=== PATIENT | male | born 1945 | race Caucasian/White ===

== ENCOUNTER → 2018-04-15 | Outpatient (CLI) | payer OTHER ==
[~2018-04-15] MED LIST: AMLODIPINE BESYL5 M1 PO; ASPIRIN325 PO; BLOOD PRESSURE MED; CELEXA 20 MG TA20 M1 PO; CIPRO250 M1 PO; COLACE100 MG PO; FLUCONAZOLE 10100 MG PO; GLUCOPHAGE1000 MG PO; GLUCOPHAGE500 MG PO; GLYBURIDE 5 MG T5 MG PO; HUMALOG100 UNIT/1 SUBQ; LANTUS SUBLING; LANTUS SUBQ; LEVAQUIN 500 M500 M2 PO; LIPITOR 40 MG T40 M1 PO; LISINOPRIL-HCT1 EAC1 PO; LISINOPRIL40 MG PO; LOPERAMIDE 2 MG2 M1 PO; LOVENOX SQ; MAXIPIME 1 GM/D51 G1 IV; MOBIC15 MG PO; NORVASC10 MG PO; OMEPRAZOLE 20 M20 M1 PO; OXYBUTYNIN 5 MG5 M2 PO; PROZAC20 MG PO; SLO-NIACIN750 MG PO; TOUJEO MAX300 UNIT/1 SUBQ; TYLENOL325 MG PO; ZESTRIL20 MG PO; ZYVOX600 MG PO
[2018-04-15 14:46] LABS: CALCIUM 9.1 mg/dL (8.5-10.1); CREATININE 1.3 mg/dL (0.6-1.3); POTASSIUM 4.5 mmol/L (3.5-5.1)
[2018-04-15 14:47] LABS: ABSOLUTE BASOPHILS 0.1 thou/uL (0.0-0.2); ABSOLUTE EOSINOPHILS 0.2 thou/uL (0.0-0.7); ABSOLUTE LYMPHOCYTES 2.3 thou/uL (0.8-5.3); ABSOLUTE MONOCYTES 0.9 thou/uL (0.0-1.2); ABSOLUTE NEUTROPHILS 8.1 thou/uL (1.6-8.1); BASOPHILS 0.6 %; EOSINOPHILS 1.4 %; HEMATOCRIT 42.7 % (42.0-52.0); HEMOGLOBIN 14.3 gm/dL (14.0-18.0); MCH 29.7 pg (26.0-34.0); MCHC 33.4 g/dL (28.0-37.0); MONOCYTES 7.8 %; MPV 7.4 fl. (7.2-11.1); NUCLEATED RBCS 0 /100WBC; PLATELET COUNT* 338 thou/uL (150-400); POLYS 70.2 %; RBC 4.79 mil/uL (4.50-6.00); RDW-CV 13.5 % (10.5-14.5); WBC 11.6 thou/uL (4.0-11.0)
--- NOTE | 2018-04-16 13:50 | EKG ---
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 : 1945 Requested By: Damion Pan Order Number: [id number] Reading MD: Gus Patricia Measurements Intervals [place] Rate: 72 P: 64 [place]: 155 QRS: 37 QRSD: 79 T: 116 QT: 391 QTc: 428 Interpretive Statements Sinus rhythm Abnormal T, consider ischemia, lateral leads Baseline wander in lead(s) V1 Compared to ECG 02/06/2013 11:13:38 no change Electronically Signed On 04-16-2018 13:49:54 CDT by Gus Patricia [email or web address] <ELECTRONICALLY SIGNED> By: Gus Patricia MD, [facility] 04/16/18 1349 1450 1450 Gus Patricia MD, FAC /EPI
== END ==
LOC: M.LAB 13:19
PROVIDERS: Urology
DX: Z01.818 Encounter for other preprocedural examination (principal); N40.1 Benign prostatic hyperplasia with lower urinary tract symptoms; N13.8 Other obstructive and reflux uropathy; R91.1 Solitary pulmonary nodule

== ENCOUNTER 2018-04-30 07:44 | Observation (INO) | payer OTHER ==
[~2018-04-30] VITALS: Ht 167.6 cm; Wt 81.6 kg
--- NOTE | ~2018-04-30 | H ---
[address] [address] HISTORY AND PHYSICAL Name: SHADIA MILES Room: [address] Herminio Mercedes#: [id number] Admission: 04/30/18 Attend Phys: Damion Pan MD Discharge: 05/01/18 Date of : 45 Report #: [id number] THIS REPORT FOR: //name// For History and Physical please refer to the handwritten note in the patient's medical record. By: 09Medical Records Staff KENNA /DANNA
[~2018-04-30 07:44] MED LIST changes: -AMLODIPINE BESYL5 M1 PO; -CIPRO250 M1 PO; -COLACE100 MG PO; -FLUCONAZOLE 10100 MG PO; -HUMALOG100 UNIT/1 SUBQ; -LANTUS SUBLING; -LANTUS SUBQ; -LEVAQUIN 500 M500 M2 PO; -MAXIPIME 1 GM/D51 G1 IV; -TYLENOL325 MG PO; -ZYVOX600 MG PO
[2018-04-30 08:54] VITALS: BP 157/83
[2018-04-30 12:30] VITALS: BP 187/83
[2018-04-30 13:00] VITALS: BP 187/83
[2018-04-30 15:31] VITALS: BP 187/83
[2018-04-30 15:44] VITALS: BP 170/79
[2018-04-30 21:30] VITALS: BP 158/85
[2018-05-01 00:25] VITALS: BP 162/76
[2018-05-01 04:07] LABS: ABSOLUTE BASOPHILS 0.1 thou/uL (0.0-0.2); ABSOLUTE EOSINOPHILS 0.2 thou/uL (0.0-0.7); ABSOLUTE LYMPHOCYTES 2.6 thou/uL (0.8-5.3); ABSOLUTE NEUTROPHILS 8.5 thou/uL (1.6-8.1); BASOPHILS 0.6 %; EOSINOPHILS 1.2 %; HEMATOCRIT 39.1 % (42.0-52.0); HEMOGLOBIN 13.1 gm/dL (14.0-18.0); LYMPHOCYTES 21.3 %; MCH 29.5 pg (26.0-34.0); MCHC 33.6 g/dL (28.0-37.0); MONOCYTES 7.9 %; MPV 7.5 fl. (7.2-11.1); NUCLEATED RBCS 0 /100WBC; PLATELET COUNT* 304 thou/uL (150-400); RBC 4.44 mil/uL (4.50-6.00); RDW-CV 13.1 % (10.5-14.5); WBC 12.4 thou/uL (4.0-11.0)
[2018-05-01 04:20] LABS: CALCIUM 8.6 mg/dL (8.5-10.1); CREATININE 1.1 mg/dL (0.6-1.3)
[2018-05-01 04:41] VITALS: BP 175/73
[2018-05-01 07:51] VITALS: BP 148/82
[2018-05-01 08:30] VITALS: BP 148/82
[2018-05-01] MEDS ORDERED: CIPRO250 M1 PO (13:39)
[2018-05-01 13:46] VITALS: BP 187/83
[2018-05-01 14:55] VITALS: BP 187/83
--- NOTE | 2018-05-21 10:09 | PATH ---
[address] [address] PATHOLOGY RPT PROCEDURE Name: SHADIA AVENDAÑO Room: [address] Herminio Mercedes#: [id number] Admission: 04/30/18 Date of : 45 Discharge: 05/01/18 Report #: [id number] Path Case #: [id number] [facility] Accession Number: [id number] . 01 Material submitted: . PROSTATE CHIPS . 01 Clinical history: . BPH with obstruction and lower urinary tract symptoms . 02 Diagnosis: Prostate chips: - Benign prostatic tissue with prominent stromal hyperplasia and mild chronic inflammation and mild chronic urethritis. (OSBALDO:adrienne; 05/04/2018) QMS/05/04/2018 . 02 Electronically signed: . Khari Saldana MD, Pathologist NPI- [id number] . 01 Gross description: . Received in formalin labeled "Shadia Avendaño, prostate chips," is a 6 g aggregate of connors soft tissue fragments measuring 6.5 x 4.4 x 0.4 cm in aggregate dimensions. The specimen is submitted entirely in cassettes A1 through A6. ([facility]; 05/03/2018) XDC/XDC . 02 Pathologist provided ICD-10: N40.0, N41.1 . 02 CPT . 210245 Performed at: [address], [place] [id number] MD Ozzy Lopez MD Phone: [phone] Performed at: [address] [facility] [address] [address], [place], [place] [id number] MD Khari Saldana MD Phone: [phone]
--- NOTE | 2018-06-13 15:12 | OP ---
[facility] [address] [place] [address] OPERATIVE REPORT Name: JDSHADIA Bon Room: [address] Herminio Mercedes#: [id number] Admission: 04/30/18 Attend Phys: Damion Pan MD Discharge: 05/01/18 Date of : 45 Report #: [id number] THIS REPORT FOR: //name// CC: Obdulio Pan DATE OF SERVICE: 04/30/2018 PREOPERATIVE DIAGNOSES: Benign prostatic hyperplasia with bladder outlet obstruction. POSTOPERATIVE DIAGNOSES: Benign prostatic hyperplasia with bladder outlet obstruction. PROCEDURES PERFORMED: Cystoscopy with transurethral resection of prostate. SURGEON: Damion Pan M.D. ANESTHESIA: General endotracheal. BRIEF HISTORY: The patient is a 72-year-old male who presented to the office with lower urinary tract symptoms suggestive of BPH with bladder outlet obstruction. The patient also reported nocturnal enuresis. He was treated with dual medical therapy as well as trials of anticholinergics and desmopressin without improvement. Cystoscopy in the office revealed trilobar prostatic hyperplasia with visual obstruction of his bladder outlet. After discussion of available management options, the patient elected transurethral resection of his prostate. The risks of the procedure including the risks of bleeding, infection, damage to surrounding structures, postoperative urinary incontinence, postoperative urinary retention, failure to relieve symptoms including nocturnal enuresis, need for additional procedures, and anesthetic risks were discussed with the patient and he wished to proceed. PROCEDURE IN DETAIL: The risks and benefits of surgery were discussed with the patient, and he wished to proceed. Informed consent was obtained, and the patient was transferred to the operating room where he was laid supine on the operating room table. After the induction of adequate general endotracheal anesthesia and the administration of appropriate preoperative antibiotics, the patient's legs were placed in a modified dorsal lithotomy position taking care to pad all pressure points and avoid any hyperextension or hyperflexion of his joints. The patient's genitalia were prepped and draped in the usual sterile fashion. A timeout was then performed to ensure correct patient and procedure. At this time, a 22-Djiboutian cystoscope sheath with a 30-degree cystoscope lens was lubricated and advanced under direct vision and irrigation into the anterior urethra. There were no anterior urethral abnormalities identified. As the prostatic urethra was approached, there was once [place] [address] OPERATIVE REPORT Name: SHADIA MILES Bon [address]: [address]#: [id number] Admission: 04/30/18 Attend Phys: Damion Pan MD Discharge: 05/01/18 Date of : 45 Report #: [id number] enlargement with coaptation in the midline and visual obstruction. The prostatic length was relatively short, and there was a significant median lobe enlargement, which also appeared obstructive. The cystoscope was advanced into the bladder where it was disarticulated, and the bladder was drained. Cystoscopy was then performed under direct vision and irrigation with both a 30 degree and 70 degree lens. The patient's ureteral orifices were initially difficult to identify, but eventually they were identified well up up onto the median lobe of the prostate close to midline. This left very little median lobe prostate tissue available for resection. Systematic panendoscopy revealed mild bladder wall trabeculations without additional gross bladder wall pathology. There were no papillary bladder tumors or suspicious mucosal lesions identified. At this time, the cystoscope was removed, and a 24-Djiboutian resectoscope sheath with obturator was lubricated and advanced into the bladder without difficulty. The obturator was removed and was replaced with the resectoscope. The patient's ureteral orifices were once again identified, as was the verumontanum to tabatha the distal extent of the resection. As previously noted, the ureteral orifices were found well up onto the median lobe of the prostate near the midline, which left a very small isthmus of tissue for resection of the median lobe. This was carefully resected checking frequently to be sure that the ureteral orifices were not involved in the resection. This midline portion of the median lobe was resected down until adequately channeled out. Attention was then paid to the patient's left and right lateral prostate lobes, which were resected in succession. Prostate chips generated during the procedure were periodically evacuated out through the resectoscope sheath. At the end, they were passed off the table for pathologic analysis. Care again was taken to avoid ureteral orifices given their proximity to the resection and at no time during the procedure was the resection taken distal to the verumontanum. After the prostate had been adequately resected and all prostate chips evacuated out through the resectoscope, hemostasis was obtained with the electrosurgical loop. Hemostasis was noted to be good at the conclusion of the procedure. The ureteral orifices though close to the resection, were left undisturbed. The resectoscope was then removed, and a 24-Djiboutian 3-way Baez catheter was lubricated and advanced into the bladder without difficulty. The catheter balloon was inflated with 30 mL of sterile water and continuous irrigation was established. The efflux was clear. B and O suppository was placed per rectum. The patient was returned to a supine position, awakened from anesthesia and transferred to the postoperative care unit in stable condition. The patient tolerated the procedure well. COMPLICATIONS: None. ESTIMATED BLOOD LOSS: Minimal. IV FLUIDS: Crystalloid. DRAINS: 24-Djiboutian 3-way Baez catheter [place] [address] OPERATIVE REPORT Name: MILESSHADIA Room: [address] Herminio Mercedes#: [id number] Admission: 04/30/18 Attend Phys: Damion Pan MD Discharge: 05/01/18 Date of : 45 Report #: [id number] SPECIMENS: Prostate chips. FINDINGS: 1. Normal anterior urethra. 2. Trilobar prostatic hyperplasia with visual obstruction. 3. Bilateral ureteral orifices located near the midline, well up onto the median lobe of the prostate. 4. Mild bladder wall trabeculations without additional gross bladder wall pathology. <ELECTRONICALLY SIGNED> By: Damion Pan MD 06/13/18 1512 1154 [id number] Pan MD /nt
== END 2018-05-01 14:55 | disposition home health service (06) ==
LOC: M.SUR 07:44 → M.ORTHSURG 13:37 → M.SUR 13:37 → M.ORTHSURG 14:00 → M.SUR 15:03 → M.ORTHSURG 05-01 14:55
PROVIDERS: ADMIT Urology
DX: N40.0 Benign prostatic hyperplasia without lower urinary tract symptoms (principal)

== ENCOUNTER 2018-05-05 12:37 | Inpatient (IN) | payer OTHER ==
[~2018-05-05] VITALS: Ht 172.7 cm; Wt 84.9 kg
[~2018-05-05 12:37] MED LIST changes: +CIPRO250 M1 PO
[2018-05-05 12:43] VITALS: BP 133/62
[2018-05-05 13:11] LABS: HEMATOCRIT 38.7 % (42.0-52.0); HEMOGLOBIN 12.9 gm/dL (14.0-18.0); MCH 29.2 pg (26.0-34.0); MCHC 33.2 g/dL (28.0-37.0); MCV 87.8 fL (80.0-100.0); MPV 7.3 fl. (7.2-11.1); NUCLEATED RBCS 0 /100WBC; PLATELET COUNT* 327 thou/uL (150-400); RBC 4.41 mil/uL (4.50-6.00); RDW-CV 13.2 % (10.5-14.5); WBC 23.7 thou/uL (4.0-11.0)
[2018-05-05 13:21] LABS: APTT 27.7 Seconds (25.0-31.3); INR 1.1; PROTIME 11.1 Seconds (9.20-11.50)
[2018-05-05 13:25] LABS: ANION GAP 9 mmol/L (7-16); BUN 33 mg/dL (7-18); CALCIUM 9.7 mg/dL (8.5-10.1); CHLORIDE 98 mmol/L (98-107); CO2 28 mmol/L (21-32); CREATININE 1.7 mg/dL (0.6-1.3); GLUCOSE 279 mg/dL (70-99); POTASSIUM 4.7 mmol/L (3.5-5.1); SODIUM 135 mmol/L (136-145)
[2018-05-05 13:30] LABS: ALBUMIN 3.1 g/dL (3.4-5.0); ALKALINE PHOSPHATASE 111 U/L (46-116); NT-PRO BRAIN NAT PEPTIDE 169 pg/mL (<300); SGOT 10 U/L (15-37); SGPT 14 U/L (30-65); TOTAL BILIRUBIN 0.6 mg/dL (<0.1-1.0); TOTAL PROTEIN 7.6 g/dL (6.4-8.2); TROPONIN-I LEVEL <0.06 ng/mL (<0.06)
[2018-05-05 13:37] LABS: ABSOLUTE BASOPHILS 0.2 thou/uL (0.0-0.2); ABSOLUTE EOSINOPHILS 0.2 thou/uL (0.0-0.7); ABSOLUTE LYMPHOCYTES 0.9 thou/uL (0.8-5.3); ABSOLUTE MONOCYTES 1.7 thou/uL (0.0-1.2); ABSOLUTE NEUTROPHILS 20.6 thou/uL (1.6-8.1)
[2018-05-05 13:38] LABS: PLATELET ESTIMATE ADEQUATE
[2018-05-05 14:00] LABS: URINE BILIRUBIN NEGATIVE (Negative); URINE BLOOD 3+ (Negative); URINE CLARITY CLOUDY; URINE COLOR BROWN; URINE GLUCOSE-RANDOM 1+ (Negative); URINE KETONES TRACE (Negative); URINE LEUKOCYTES-REFLEX 2+ (Negative); URINE NITRITE-REFLEX NEGATIVE (Negative); URINE PROTEIN 2+ (Negative); URINE SPECIFIC GRAVITY 1.025 (1.005-1.030); URINE UROBILINOGEN 0.2 E.U./dl (0.2-1.0)
[2018-05-05 14:06] LABS: SQUAMOUS NONE SEEN /LPF (0-3)
[2018-05-05 14:07] LABS: CASTS None Seen /LPF (None Seen); CRYSTALS None Seen /LPF (None Seen); URINE RBC >20 Many /HPF (0-2)
[2018-05-05 15:38] VITALS: BP 136/71
[2018-05-05 16:00] VITALS: BP 142/77
--- NOTE | 2018-05-05 17:03 | NUR ---
RECIEVED REPORT FROM MIA RN IN ER OF EXPECTED TRANSFER AT 1516- DX: SEPSIS WITH WEAKNESS- PT ARRIVED TO UNIT VIA CART WITH ASSISTANCE REQUIRED X3 VIA SLIDE TO BED- LENS GRINDER APPRENTICE PLACE ORDERED, TRCING ST- UPON ASSESSMENT PT NOTED TO BE INCONTINENT OF URINE- A&O X2 WITH NOTED CONFUSSION- LCTA, DIMINISHED IN BASES- VS 99.3 20 142/77 111 92% ON RA- ABDOMEN SOFT/ROUND/NON-TENDER, BS X4 QUADS- PT REPORTS PT TO HAVE HAD BM LAST 05/04/18- 3L IVF REPORTED TO HAVE BEEN COMPLETED IN ER PRIOR TO TRANSFER, ALONG WITH IV ABT- IVF STARTED PRESIBED AT 100ML/HR- POST VOID RESIDUAL PER [employer] COMPLETED AND NOTED WITH 233CC PVR- HERE TO ASSESS WITH ANGEL PLACED PER PHYSICAIN AND NOT TO BE REMOVED- BS PRESCIBED, BS NOTED TO BE 124 PRIOR TO DINNER THIS SHIFT- PT DENIES ANY C/O PAIN/DISCOMFORT AT THIS TIME- FALL PRECAUTIONS IN PLACE R/T FREQUENT FALLS- BED ALARM IN PLACE ADN WORKING R/T PATINET SAFETY- CALL LIGHT AND PERSONAL BELONGINGS WITH IN REACH- HOURLY ROUNDS IN PLACE R/T SAFETY/NEEDS- ALL NEEDS MET AT THIS TIME-WCTM
[2018-05-05 20:00] VITALS: BP 142/61
[2018-05-06] VITALS: BP 175/73
[2018-05-06 04:00] VITALS: BP 155/63
[2018-05-06 04:27] LABS: ABSOLUTE BASOPHILS 0.1 thou/uL (0.0-0.2); ABSOLUTE LYMPHOCYTES 1.5 thou/uL (0.8-5.3); ABSOLUTE NEUTROPHILS 17.3 thou/uL (1.6-8.1); BASOPHILS 0.3 %; EOSINOPHILS 0.1 %; HEMATOCRIT 35.9 % (42.0-52.0); LYMPHOCYTES 7.4 %; MCH 29.1 pg (26.0-34.0); MCHC 33.5 g/dL (28.0-37.0); MONOCYTES 9.7 %; MPV 7.9 fl. (7.2-11.1); NUCLEATED RBCS 0 /100WBC; PLATELET COUNT* 279 thou/uL (150-400); POLYS 82.5 %; RBC 4.12 mil/uL (4.50-6.00); RDW-CV 12.9 % (10.5-14.5)
[2018-05-06 04:42] LABS: CALCIUM 8.1 mg/dL (8.5-10.1); CREATININE 1.1 mg/dL (0.6-1.3); POTASSIUM 4.2 mmol/L (3.5-5.1)
--- NOTE | 2018-05-06 05:17 | NUR ---
ASSUMED CARE OF PT AFTER REPORT AT 1930. PT A&OX 3-4 AND FORGETFUL. PHSYCAL ASSESSMENT COMPLETED AND CHARTED. PT ON RA WITH 96% O2 SAT.PT TRACING ST ON TELE. PT FEBRILE WITH TEMP OF 102 F-ANTIPYRETIC MED GIVEN PER DEC. PT HAS ONE TIME EPISODE OF NAUSEA & VOMITING-TREATED WITH ZOFRAN. PT BP 175/73 AND HR 120'S-METOPROLOL GIVEN. PT Q2 TURN. HS REST AND SAFETY GOALS ACHIEVED. DENIES ANY PAIN OR DISCOMFORT. WILL CONTINUE TO MONITOR PT ON DURATION OF SHIFT.
[2018-05-06 07:54] VITALS: BP 149/80
--- NOTE | 2018-05-06 09:28 | NUR ---
ASSUMED CARE OF PT THIS AM AROUND 0715- PHYSICAL TRAINER IN PLACE ORDERED, TRACING ST THIS AM- UPON ASSESSMENT PT NOTED TO BE RESTING IN BED, WATCHING TV- PT A&O X2-3 WITH NOTED CONFUSSION- INCONTINENT OF BOWEL, ANGEL IN PLACE D/D DANIELLE COLORED URINE- Q [address]-DIMINISHED LUNG SOUNDS NOTED, RESP EVEN AND UN-LABORED- VSS, 02 SAT 95% ON RA-ABDOMEN SOFT/ROUND/NON-TENDER, BS X4 QUADS- PT REPORTS LAST BM 05/04/18- IV NOTED TO LEFT FA INTACT WITH IVF INFUSING PRESCRIBED- IV NOTED TO RIGHT AC INTACT AND SL- ID CONSULTED THIS AM FOR ABT- LATIC THIS AM WNL AT 1.2- GOOD PO INTAKE NOTED THIS AM WITH BREAKFAST- PT DENIES ANY C/O PAIN/DISCOMFORT THIS AM-CALL LIGHT AND PERSONAL BELONGINGS WITH IN REACH- BED ALARM IN PLACE AND WORKING FOR PT SAFETY- HOURLY ROUNDS IN PLACE R/T SAFETY/NEEDS- ALL NEEDS MET AT THIS TIME-WCTM
[2018-05-06 11:54] VITALS: BP 162/82
--- NOTE | 2018-05-06 12:59 | EKG ---
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 CARREON : 1945 Requested By: Vinnie Nguyen Order Number: [id number] MD: Franco Ch Measurements Intervals [place] Rate: 111 P: 48 [place]: 146 QRS: 33 QRSD: 80 T: 121 QT: 311 QTc: 423 Interpretive Statements Sinus tachycardia Probable left atrial enlargement Nonspecific T abnormalities, lateral leads Compared to ECG 04/15/2018 14:50:46 Sinus rate has increased Possible ischemia no longer present T-wave abnormality still present Electronically Signed On 05-06-2018 12:59:46 CDT by Franco Ch [email or web address] <ELECTRONICALLY SIGNED> By: Franco Ch MD, [facility] 05/06/18 1259 1254 1254 Franco Ch MD, [facility] /EPI
--- NOTE | 2018-05-06 16:19 | NUR ---
PT CURRENTLY RESTING IN BED, AT SIDE VISITING- LEAD FRONT DESK AGENT IN PLACE ORDERED, TRACING SR WITH PAC'S- IV TO LEFT FA INTACT WITH IVF INFUSING PRESCIBED- IV ABT GIVEN THIS SHIFT PRESCIBED- HERE TO ASSESS THIS SHIFT WITH 1X ORDER RECIEVED FOR GENTAMICYCIN, AND GIVEN PRESCIBED THIS SHIFT- WORKING WITH PT/OT PRESCIBED- SLOW ADVANCE NOTED TOWARDS GOALS, NEEDS EXT ASSISTANCE WITH ADL'S- MG NOTED AT 1.0 THIS AM, REPLACED PER PROTOCOL THIS SHIFT AWAITING REDRAW AT THIS TIME- DENIES ANY C/O PAIN/DISCOMFORT AT THIS TIME- BED ALARM REMAINS IN PLACE R/T SAFETY/NEEDS- HOURLY ROUNDS IN PLACE R/T SAFETY/NEEDS- ALL NEEDS MET AT THIS TIME-WCTM
--- NOTE | 2018-05-06 16:19 | NUR ---
CM SPOKE TO THE PATIENT TO DISCUSS HOME SITAUTION, DISCHARGE PLANNING, AND TO INFORM OF THE ROLE OF CM. PATIENT ALERT AND ORIENTED. PATIENT IS KNOWN TO CM FROM PREVIOUS ADMISSION. PATIENT D/C'D FROM HOSPITAL LAST THURSDAY WITH [facility]. [facility] INFORMS THAT PATIENT REFUSED TO BE SEEN BY HH. PATIENT RESIDES AT HOME WITH SPOUSE AND SHE ASSIST HIM NEEDED. PATIENTS SPOUSE DOES ALL COOKING, CLEANING, AND DRIVES. PATIENT USES A CANE FOR MOBILITY, BUT INFORMS THAT HE MAY NEED A WALKER AT D/C. CM SPOKE TO THE PATIENT AND SPOUSE TO ADDRESS THE NEED OF SKILLED AT D/C AND THEY ADAMITLY REFUSE SNF AT D/C. CM WILL REMAIN AVAILABLE TO ASSIST AND FOLLOW NEEDED.
[2018-05-06 17:00] VITALS: BP 150/89
[2018-05-06 20:00] VITALS: BP 136/75
[2018-05-07] VITALS: BP 168/87
[2018-05-07 04:00] VITALS: BP 160/76
--- NOTE | 2018-05-07 05:06 | NUR ---
ASSUMED CARE OF PT AFTER REPORT AT 1930. PT A&0X3, CONFUSED, FORGETFUL AND IMPULSIVE. PT ON RA WITH O2 SAT OF 95% RA.PT TRACING SR/ST ON TELE. PT HAS AN EPISODE OF INCONTINENT BOWEL.PT ANGEL DRAINING LIGHT YELLOW URINE TO DEPENDENT DRAIN. DENIES ANY PAIN OR DISCOMFORT. PT ATTEMPTED GETTING OUT OF BED AND PULLED OUT IV 2X.REINSERTED ANOTHER IV PERIPHERAL LINE ON LEFT FOREARM. PT Q2 TURN.HS REST AND SAFETY GOALS ACHIEVED. FALL PRECAUTIONS OBSERVED. CALL LIGHT WITHIN REACH. BED IN LOW POSITION. BED ALARM ON.
--- NOTE | 2018-05-07 05:21 | NUR ---
PT NOT ORIENTED TO TIME. AGREE WITH ASSESSMENT.
--- NOTE | 2018-05-07 07:20 | CON ---
[address] [address] CONSULTATION Name: MILESNAYELYSHADIA Bon Room: [address] IN M.R.#: [id number] Admission: 05/05/18 Attend Phys: Jeevan Gordon MD Discharge: Date of : 45 Report #: [id number] THIS REPORT FOR: //name// CC: Jeevan Gordon [facility] DATE OF SERVICE: 05/06/2018 ATTENDING PHYSICIAN: Jeevan Gordon M.D. REASON FOR EVALUATION: Complicated urinary tract infection. HISTORY OF PRESENT ILLNESS: Chart reviewed, the patient examined. This is a 72-year-old with history of diabetes mellitus who has had previous strokes. It is unclear, may have a degree of dementia who was hospitalized 04/30/2018 through 05/04/2018. At that time, he was admitted with BPH, bladder outlet obstruction, underwent cystoscopy and transurethral resection of the prostate, apparently with fairly unremarkable postop course. He was home, apparently he became quite weak, fell at least twice per spouse, was reevaluated and was found to have significant pyuria as well as hematuria, and thought to have a complicated urinary tract infection. He is at least mildly encephalopathic. Did reach temperature elevation to 102 degrees Fahrenheit last night. He was empirically started on therapy with levofloxacin as well as vancomycin. ALLERGIES: None known. CURRENT MEDICATIONS: Include levofloxacin, pantoprazole, vancomycin, insulin, metoprolol, ondansetron, p.r.n. analgesics, antiemetics. PAST MEDICAL HISTORY: Diabetes mellitus, hypertension, previous stroke, hyperlipidemia. SOCIAL HISTORY: Former smoker. No ethanol. FAMILY HISTORY: Noncontributory. REVIEW OF SYSTEMS: This is limited. Denies significant gastrointestinal-related complaints. No pulmonary complaints. PHYSICAL EXAMINATION: GENERAL: He is pleasant, alert, cooperative, appears to have some degree of acute or chronic encephalopathy. VITAL SIGNS: T-max earlier 100.2, more recently 98.7, pulse 105, respirations 17, blood pressure 163/82. SKIN: Warm, dry, no rashes. HEENT: Otherwise[place] [address] CONSULTATION Name: SHADIA MILES Room: [address] IN [facility]#: [id number] Admission: 05/05/18 Attend Phys: Jeevan Gordon MD Discharge: Date of : 45 Report #: [id number] NECK: Supple. LUNGS: Diminished breath sounds, otherwise clear. HEART: Regular. I do not appreciate any murmur. ABDOMEN: Soft, nontender, nondistended. There are no peritoneal signs. GENITOURINARY: Deferred. RECTAL: Deferred. LABORATORY DATA: Blood cultures are sterile thus far. Lactic acid initially was 4.1, repeat this morning was 1.2. Electrolytes: Sodium 135, potassium 4.2, chloride 103, bicarbonate 25, BUN and creatinine 19 and 1.1, glucose of 167. CBC: White count 21.0, H and H 12.0 and 35.9, platelets of 279. CT abdomen and pelvis showed no abdominal related inflammation. He has got solitary retroperitoneal lymphadenopathy, some mild effusion with bladder wall thickening, question of cystitis, some nonobstructive nephrolithiasis. ASSESSMENT: Complicated urinary tract infection in the setting of a recent procedure with transurethral resection of the prostate. We will await culture results. Continue empiric antimicrobial therapy. I think it is reasonable to cover for staphylococcus as well given the possibility of quinolone resistant to gram-negative. We will dose with gentamicin pending results. We will have to monitor expectantly. <ELECTRONICALLY SIGNED> By: Sánchez Cordero MD 05/07/18 0720 1532 [id number] Cordero MD /nt
[2018-05-07 07:48] VITALS: BP 158/80
--- NOTE | 2018-05-07 09:17 | NUR ---
ASSUMED CARE OF PT THIS AM AROUND 0715- STEAM PLANT RECORDS CLERK IN PLACE ORDERED, TRACING SR THIS AM- UPON ASSESSMENT PT NOTED TO BE RESTING IN BED WITH EYES CLOSED- PT A&O X2-3 WITH NOTED CONFUSSION- INCONTINENT OF BOWEL, ANGEL IN PLACE D/D DANIELLE URINE-Q 2HOUR TURNS IN PLACE INDICATED- EXT ASSIST X1-2 WITH TRANSFERS-DIMINISHED LUNG SOUNDS NOTED, RESP EVEN AND UN-LABORED- VSS, O2 SAT 97% ON RA- ABDOMEN SOFT/ROUND/NON-TENER, BSX 4 QUADS- PT REPORTED TO HAVE HAD SM BM OVER NIGHT-IV NOTED TO LEFT FA INTACT, IVF INFUSSING PRESCRIBED-IV ABT GIVEN THIS AM PRESCIBED, NO ADVERSE REACTIONS TO NOTED- GOOD PO INTAKE NOTED THIS AM WITH BREAKFAST- DENIES ANY C/O PAIN/DISCOMFORT AT THIS TIME-CALL LIGHT AND PERSOANL BELONGINGS WITH IN REACH- HOURLY ROUNDS IN PLACE R/T SAFETY/NEEDS- BED ALARM IN PLACE AND WORKING R/T SAFETY- ALL NEEDS MET AT THIS TIME-WCTM
--- NOTE | 2018-05-07 09:36 | NUR ---
Nutrition: Pt assessed for DX of sepsis. Labs: WBC 21, BG 156-167, alb 3.1, Na 135. +BM. Good po intake at [facility], regular diet. Usual wt is 180#. Today's wt is 191# - no edema noted, neg fluid balance. Please reweigh for accuracy. Pt on Vanc for sepsis. Consider low nutrition risk.
--- NOTE | 2018-05-07 11:43 | CON ---
[address] [address] CONSULTATION Name: SHADIA MILES Room: [address] IN .R.#: [id number] Admission: 05/05/18 Attend Phys: Jeevan Gordon MD Discharge: Date of : 45 Report #: [id number] THIS REPORT FOR: //name// CC: [facility] Jeevan Pan MD DATE OF SERVICE: 05/05/2018 REASON FOR CONSULTATION: Fever, urosepsis post-TURP. HISTORY OF PRESENT ILLNESS: The patient is a 72-year-old male who underwent TURP by Dr. Pan on 04/30/2018. He had a voiding trial prior to discharge, passed that and was dismissed without his catheter. Since that time, reports he has been weak and has sustained a couple of falls and generally not feeling well. She could not get him up today and therefore, she called the EMS. On admission to the Emergency Room, he was found to be febrile, tachycardic and had leukocytosis and lactic acidosis. He has been admitted to the hospitalist service on broad spectrum antibiotics. PAST MEDICAL HISTORY: Includes BPH, diabetes, hypertension, hyperlipidemia, stroke, history of falls. PAST SURGICAL HISTORY: Includes TURP. ALLERGIES: None. MEDICATIONS: Reviewed. At home, he takes meloxicam, fluoxetine, omeprazole, insulin, oxybutynin, loperamide, lisinopril, metformin, atorvastatin. SOCIAL HISTORY: He lives with his . He is a former smoker. Denies any alcohol use and denies recreational drug use. REVIEW OF SYSTEMS: Twelve-point review of systems is performed and is negative except as noted above in HPI. PHYSICAL EXAMINATION: VITAL SIGNS: Temperature is 37.4, pulse 111, respirations 20, blood pressure 142/77. He was febrile to 38.1 earlier today in the ER. He is 97% on room air. GENERAL: He is a well-developed, well-nourished, adult male in no acute distress. He is alert and oriented. HEENT: Normocephalic, atraumatic. LUNGS: Unlabored. HEART: Tachycardic. ABDOMEN: Soft, nontender, [place] [address] CONSULTATION Name: SHADIA MILES Room: [address]#: [id number] Admission: 05/05/18 Attend Phys: Jeevan Gordon MD Discharge: Date of : 45 Report #: [id number] GENITOURINARY: He has normal uncircumcised phallus. Meatus normal. His foreskin is easily retractable and testes are normal. EXTREMITIES: Without edema. SKIN: Without lesions or rashes. LABORATORY DATA: White count 23.7, hemoglobin 12.9, platelets 327. His creatinine is 1.7 with a baseline of 1.1. Urine looks positive for infection, positive for white cells, bacteria, but negative for nitrite. His lactic acid is 4.1. Blood and urine cultures have been drawn and are pending. CT scan of the abdomen and pelvis was reviewed. He has no hydronephrosis and no ureteral stones, but he does appear to have some bilateral small nonobstructing stones. They also noted a large retroperitoneal lymph node around 2.4 cm that is isolated posterior to the vena cava at the level of the renal vessels, but there is no other lymphadenopathy. He has mild bladder wall thickening. 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 ASSESSMENT AND PLAN: Suspected urosepsis post-transurethral resection of prostate. I did place a Baez catheter, 18-Qatari Coude with return of about 200 mL of urine. There were some clots, but overall, it is clear and draining fine. Would recommend broad-spectrum antibiotics as well as a Baez catheter drainage for now and monitoring of his labs. We will continue to follow along with you. <ELECTRONICALLY SIGNED> By: Deja Bell MD 05/07/18 1143 1706 23Deja Bell MD /nt
[2018-05-07 12:00] VITALS: BP 128/64
[2018-05-07 16:00] VITALS: BP 142/81
--- NOTE | 2018-05-07 16:12 | NUR ---
PT TEGAN RESTING IN BED, AT SIDE- IV NOTED TO LEFT AC INTACT, IVF INFUSSING PRESCIBED-PT UP TO CHAIR THIS SHIFT X2, TOLERATING WELL- WORKING WITH THERAPIES PRESCIBED- NOTED TO HAVE IMPROVEMENT IN STRENGTH THIS SHIFT, ADVACNING TOWARDS GOALS- MG NOTED TO BE 1.5 AT 1100 THIS SHIFT REPLACED X2 THIS SHIFT PER PROTOCOL; REDRAW TO BE COMPLETED AT 1940- VANC TROUGH THIS SHIFT RESULTED AT 2, VANC REDOSED PER PHARMACY WITH NEW DOSE GIVEN PRESCIBED- CBS, BMP SCHEDULED FOR IN AM- Q 2 HOUR TURNS CONTINUED INDICATED THIS SHIFT- GOOD PO INTAKE NOTED WITH MEALS THIS SHIFT- DENIES ANY C/O PAIN/DISCOMFORT AT THIS TIME- CALL LIGHT ANE PERSONAL BELONGINGS WITH IN REACH- BED ALARM IN PLACE AND WORKING FOR PT SAFETY- ALL NEEDS MET AT THIS TIME-WCTM
[2018-05-07 19:45] VITALS: BP 176/85
[2018-05-08] VITALS (7 sets, daily range): BP systolic 135–175; BP diastolic 63–92
--- NOTE | 2018-05-08 03:25 | NUR ---
ASSUMED CARE OF PT AT 1900. PT IS ALERT AND ORIENTED X'S 2-3. PT CONFUSED TO SITUATION. VSS. PERRLA. NO COMPLAINTS OF PAIN. PT HAS A ANGEL CATHETER IN PLACE. PT IS IN SINUS RYTHM ON THE TELEMETRY. PT IS RESTING COMFORTABLY IN BED. RESPIRATIONS ARE EVEN AND NONLABORED. WILL CONTINUE TO MONITOR PT.
[2018-05-08 04:35] LABS: ABSOLUTE BASOPHILS 0.1 thou/uL (0.0-0.2); ABSOLUTE EOSINOPHILS 0.3 thou/uL (0.0-0.7); ABSOLUTE LYMPHOCYTES 2.1 thou/uL (0.8-5.3); ABSOLUTE MONOCYTES 1.4 thou/uL (0.0-1.2); ABSOLUTE NEUTROPHILS 9.4 thou/uL (1.6-8.1); BASOPHILS 0.4 %; EOSINOPHILS 2.4 %; HEMATOCRIT 35.1 % (42.0-52.0); HEMOGLOBIN 11.8 gm/dL (14.0-18.0); LYMPHOCYTES 15.9 %; MCH 29.2 pg (26.0-34.0); MCHC 33.5 g/dL (28.0-37.0); MCV 87.2 fL (80.0-100.0); MONOCYTES 10.6 %; MPV 7.5 fl. (7.2-11.1); NUCLEATED RBCS 0 /100WBC; PLATELET COUNT* 304 thou/uL (150-400); POLYS 70.7 %; RBC 4.03 mil/uL (4.50-6.00); RDW-CV 12.6 % (10.5-14.5); WBC 13.4 thou/uL (4.0-11.0)
[2018-05-08 04:52] LABS: CALCIUM 7.4 mg/dL (8.5-10.1); CREATININE 0.9 mg/dL (0.6-1.3); POTASSIUM 3.9 mmol/L (3.5-5.1)
[2018-05-08] MEDS ORDERED: LEVAQUIN 500 M500 M2 PO (09:12)
[2018-05-08] MEDS ORDERED: TYLENOL325 MG PO (10:56)
[2018-05-08] MEDS ORDERED: COLACE100 MG PO (10:57)
--- NOTE | 2018-05-08 12:17 | NUR ---
SW spoke with pt about pt dc today. Pt said that although pt did not want to go to SNF initially, pt said she felt it would be best for pt and pt if pt could go to rehab at SNF for a while at dc, pt was concerned with pt being able to get in and out of the home safely. Pt said that their preference for SNF is [facility], SW sent referral, dc pending SNF approval, bed availability and insurance authorization. SW to continue to follow.
--- NOTE | 2018-05-08 17:39 | NUR ---
AWAITING PLACEMENT AT SNF. ANGEL REMAINS IN PLACE, DRAINING YELLOW URINE. UP AND AMBULATED WITH THIS NURSE AND THERAPY UTILIZING A WALKER. IV ABX GIVEN SCHED.
[2018-05-09] VITALS: BP 154/87
[2018-05-09 04:00] VITALS: BP 135/55
--- NOTE | 2018-05-09 04:31 | NUR ---
PATIENT RESTED IN BED, NO ACUTE CHANGES. PATIENT DID NOT SHOW SIGNS OF DISTRESS. FALL PRECAUTIONS IN PLACE, BED ALARM ON, CALL LIGHT WITHIN REACH, HOURLY ROUNDING OBSERVED.
[2018-05-09 07:30] VITALS: BP 145/74
[2018-05-09 11:51] VITALS: BP 134/62
[2018-05-09 15:55] VITALS: BP 145/68
--- NOTE | 2018-05-09 17:02 | NUR ---
PATIENT HAD A BM THIS SHIFT. AT BEDSIDE. ANGEL REMAINS IN PLACE CLEAR YELLOW URINE. INSULIN GIVEN WITH MEALS. IV ABX GIVEN ORDERED. BUS REPAIR SUPERVISOR IN PLACE THIS SHIFT.
[2018-05-09 20:00] VITALS: BP 161/76
[2018-05-10] VITALS (8 sets, daily range): BP systolic 126–172; BP diastolic 60–88
--- NOTE | 2018-05-10 03:13 | NUR ---
ASSUMED CARE OF PATIENT AFTER REPORT. PATIENT RESTED IN BED, NO ACUTE CHANGES. PATIENT DID NOT SHOW SIGNS OF DISTRESS. FALL PRECAUTIONS IN PLACE, BED ALARM ON, CALL LIGHT WITHIN REACH, HOURLY ROUNDING OBSERVED.
--- NOTE | 2018-05-10 05:08 | NUR ---
DOCTOR NOTIFIED OF ELEVEATED BLOOD PRESSURE, SEE ORDERS.
--- NOTE | 2018-05-10 10:45 | NUR ---
ASSUMED PT CARE AT 0730, FULL ASSESMENT DONE CHARTED. PT A/O X4, BUT IS FORGETFUL. PT STATES HE CAME HERE BECAUSE HE HAD FALLEN AT HOME, HE STATES HE SOMETIMES IS DIZZY WITH STANDING. ORTHOSTATICS OBTAINED, REFER TO CHARTING. PT SITTING IN CHAIR WITH RN IN ROOM, STANDS UP BECUASE HE STATES"[facility] RN WAS TO HELP HIM BUT HE HAD ALREADY GONE IN CHAIR. PT HAD LARGE BM. PT EDUCATED TO CALL THE NURSES STATION IF NEEDING HELP TO [place] AGAIN. PT VERBALIZED UNDERSTANDING BUT NEEDS REENFORCEMENT. VSS, SR ON THE MONITOR. FALL PRECAUTIONS IN PLACE. DISCHARGE ORDERS RECIEVED, WAITING ON INSURANCE APPROVAL TODAY. WILL CONTINUE WITH PLAN OF CARE.
--- NOTE | 2018-05-10 11:16 | NUR ---
Stefanie from [facility] here to eval Pt, they are able to clinically accept Pt. [facility] will need therapy notes from today, prior to submitting for insurance auth. Updated music therapy specialist and nurse. CM will fax today's therapy notes once available. DC pending insurance auth.
[2018-05-10] MEDS ORDERED: LANTUS SUBLING (11:17)
[2018-05-10] MEDS ORDERED: HUMALOG100 UNIT/1 SUBQ (11:18)
--- NOTE | 2018-05-10 18:33 | NUR ---
RECIEVED APPROVAL FOR PT TO GO TO [facility]. FAXED ORDERS TO [facility], REVIEWED DISCARGE INSTRUCTIONS WITH PT AND . CALLED REPORT TO [facility]. PT LEFT UNIT AT APPROX 1755 BY [facility].
== END 2018-05-10 17:55 | DRG 871 ==
LOC: M.ERS 12:37 → M.TBA-ER 14:18 → M.2W 14:18
PROVIDERS: Family Medicine; Urology; ADMIT Internal Medicine
DX: A41.9 Sepsis, unspecified organism (principal); G93.40 Encephalopathy, unspecified; N17.0 Acute kidney failure with tubular necrosis; N39.0 Urinary tract infection, site not specified; E87.2 Acidosis; I10 Essential (primary) hypertension; E78.5 Hyperlipidemia, unspecified; N40.0 Benign prostatic hyperplasia without lower urinary tract symptoms; F03.90 Unspecified dementia, unspecified severity, without behavioral disturbance, psychotic disturbance, mood disturbance, and anxiety; E11.9 Type 2 diabetes mellitus without complications; W18.39XA Other fall on same level, initial encounter; Z86.73 Personal history of transient ischemic attack (TIA), and cerebral infarction without residual deficits; Z79.2 Long term (current) use of antibiotics; Z79.899 Other long term (current) drug therapy; Z87.891 Personal history of nicotine dependence; Y93.89 Activity, other specified; Y92.89 Other specified places as the place of occurrence of the external cause; Y99.8 Other external cause status

== ENCOUNTER 2018-05-21 21:11 | Inpatient (IN) | payer OTHER ==
[~2018-05-21] VITALS: Ht 177.8 cm; Wt 81.6 kg
[~2018-05-21 21:11] MED LIST changes: +COLACE100 MG PO; +HUMALOG100 UNIT/1 SUBQ; +LANTUS SUBLING; +LEVAQUIN 500 M500 M2 PO; +TYLENOL325 MG PO
[2018-05-21 21:15] VITALS: BP 125/87
[2018-05-21 21:53] LABS: ABSOLUTE BASOPHILS 0.2 thou/uL (0.0-0.2); ABSOLUTE EOSINOPHILS 0.2 thou/uL (0.0-0.7); ABSOLUTE LYMPHOCYTES 3.1 thou/uL (0.8-5.3); ABSOLUTE MONOCYTES 1.4 thou/uL (0.0-1.2); ABSOLUTE NEUTROPHILS 12.9 thou/uL (1.6-8.1); BASOPHILS 1.2 %; EOSINOPHILS 1.2 %; HEMATOCRIT 38.3 % (42.0-52.0); HEMOGLOBIN 12.6 gm/dL (14.0-18.0); LYMPHOCYTES 17.5 %; MCH 28.5 pg (26.0-34.0); MCHC 32.9 g/dL (28.0-37.0); MCV 86.7 fL (80.0-100.0); MPV 7.3 fl. (7.2-11.1); NUCLEATED RBCS 0 /100WBC; PLATELET COUNT* 435 thou/uL (150-400); POLYS 72.1 %; RBC 4.42 mil/uL (4.50-6.00); RDW-CV 13.4 % (10.5-14.5); WBC 17.9 thou/uL (4.0-11.0)
[2018-05-21 22:52] LABS: URINE BILIRUBIN NEGATIVE (Negative); URINE BLOOD 2+ (Negative); URINE CLARITY CLEAR; URINE COLOR YELLOW; URINE GLUCOSE-RANDOM NEGATIVE (Negative); URINE KETONES NEGATIVE (Negative); URINE NITRITE-REFLEX NEGATIVE (Negative); URINE PROTEIN TRACE (Negative); URINE SPECIFIC GRAVITY <= 1.005 (1.005-1.030); URINE UROBILINOGEN 0.2 E.U./dl (0.2-1.0)
[2018-05-21 22:53] LABS: URINE LEUKOCYTES-REFLEX 3+ (Negative)
[2018-05-21 22:57] LABS: ALBUMIN 3.1 g/dL (3.4-5.0); CREATININE 2.2 mg/dL (0.6-1.3); POTASSIUM 6.5 mmol/L (3.5-5.1); TOTAL BILIRUBIN 0.3 mg/dL (<0.1-1.0); TOTAL PROTEIN 8.9 g/dL (6.4-8.2)
[2018-05-21 23:11] LABS: BACTERIA-REFLEX >30 Many /HPF (None Seen); CASTS None Seen /LPF (None Seen); MUCUS 0-3 Light strn/LPF (None Seen); SQUAMOUS 0-3 Few /LPF (0-3); URINE RBC >20 Many /HPF (0-2); URINE WBC-REFLEX >25 Many /HPF (0-5); WBC CLUMPS Moderate (None Seen)
[2018-05-21 23:12] LABS: CRYSTALS None Seen /LPF (None Seen)
[2018-05-22] VITALS (16 sets, daily range): BP systolic 138–182; BP diastolic 62–96
[2018-05-22 02:36] LABS: HEMATOCRIT 35.4 % (42.0-52.0); HEMOGLOBIN 11.8 gm/dL (14.0-18.0); MCHC 33.2 g/dL (28.0-37.0); MCV 87.3 fL (80.0-100.0); MPV 7.1 fl. (7.2-11.1); RBC 4.05 mil/uL (4.50-6.00); RDW-CV 13.1 % (10.5-14.5); WBC 12.5 thou/uL (4.0-11.0)
[2018-05-22 02:54] LABS: ALBUMIN 2.6 g/dL (3.4-5.0); CALCIUM 7.9 mg/dL (8.5-10.1); POTASSIUM 4.8 mmol/L (3.5-5.1); TOTAL BILIRUBIN 0.3 mg/dL (<0.1-1.0); TOTAL PROTEIN 5.9 g/dL (6.4-8.2)
--- NOTE | 2018-05-22 05:41 | NUR ---
PT ARRIVED [facility] ER AT 0045 ASSISTED TO BED ORIENTED TO SURROUNDINGS. PT ORIENTED ONLY TO SELF. VS AND ASSESSMENT AT PTS REPORTED BASELINE. PT CONFUSED AND PULLING AT IV TUBING AND VS WIRES, PT PULLED OFF O2 SAT SENSOR THREE TIMES AND PULLED OUT 1 OF HIS IV'S, UNABLE TO REDIRECT NOTIFIED DR BATISTA OBTAINED ORDERS FOR BILATERAL SOFT WRIST RESTRAINTS AND PLACE ON PT AT 0400. PT DENIED ANY COMPLAINTS. WILL CONTINUE PLAN OF CARE.
--- NOTE | 2018-05-22 10:09 | NUR ---
0730 ASSUMED CARE OF PATIENT. SEE DOCUMENTED ASSESSMENT. PT ORIENTED TO SELF ONLY AT THIS TIME. RESTRAINTS RELEASED AND BED ALARM TURNED ON. INSTRUCTED NOT TO GET OUT OF BED.
--- NOTE | 2018-05-22 12:43 | EKG ---
[place] [address] ELECTROCARDIOGRAM REPORT Name: SHADIA MILES Room: [address] ADM IN M.R.#: [id number] Admission: 05/22/18 Attend Phys: Jeevan Gordon MD Discharge: Date of : 45 Report #: [id number] THIS REPORT FOR: //name// [facility] ED Test Date: 2018-05-21 Test Time: 21:41:26 Pat Name: SHADIA MILES Department: Room: [facility] Gender: M Fixture Builder: FABRICIO : 1945 Requested By: Carmen Green Order Number: [id number] MD: Delfin Way Measurements Intervals [place] Rate: 96 P: 43 AL: 151 QRS: 20 QRSD: 76 T: 106 QT: 324 QTc: 410 Interpretive Statements Sinus rhythm Nonspecific T abnormalities, lateral leads Minimal ST elevation, anterior leads early repolarization Compared to ECG 05/05/2018 12:54:37 ST (T wave) deviation now present Sinus tachycardia no longer present T-wave abnormality still present Electronically Signed On 05-22-2018 12:43:[address] [email or web address] <ELECTRONICALLY SIGNED> By: Delfin Way MD, FACC 05/22/[address] MD, FAC /EPI
--- NOTE | 2018-05-22 14:11 | NUR ---
DR CHEEK TO SEE PATIENT. PT HAD MUCH DRIED BROWN DRAINAGE AT MEATUS DURING BATH
--- NOTE | 2018-05-22 18:11 | NUR ---
PATIENT PROGRESSING TOWARDS GOALS. SAFETY MAINTAINED WITHOUT RESTRAINTS. APPETITE IMPROVING. REMAINS ORIENTED TO SELF ONLY. OUTPUT CHARTED. SPOUSE VISITED
[2018-05-22 22:23] LABS: CREATININE 1.6 mg/dL (0.6-1.3); POTASSIUM 4.5 mmol/L (3.5-5.1)
[2018-05-22 22:26] LABS: MAGNESIUM 0.8 mg/dL (1.8-2.4)
[2018-05-23] VITALS (8 sets, daily range): BP systolic 128–180; BP diastolic 69–98
[2018-05-23 03:23] LABS: HEMATOCRIT 35.8 % (42.0-52.0); HEMOGLOBIN 11.8 gm/dL (14.0-18.0); MCH 28.8 pg (26.0-34.0); MCV 87.2 fL (80.0-100.0); MPV 7.2 fl. (7.2-11.1); RBC 4.1 mil/uL (4.50-6.00); RDW-CV 13.1 % (10.5-14.5); WBC 11.1 thou/uL (4.0-11.0)
[2018-05-23 03:36] LABS: ALBUMIN 2.6 g/dL (3.4-5.0); CALCIUM 7.8 mg/dL (8.5-10.1); CREATININE 1.4 mg/dL (0.6-1.3); MAGNESIUM 2.2 mg/dL (1.8-2.4); POTASSIUM 4.2 mmol/L (3.5-5.1); TOTAL BILIRUBIN 0.3 mg/dL (<0.1-1.0); TOTAL PROTEIN 6.4 g/dL (6.4-8.2)
--- NOTE | 2018-05-23 05:07 | NUR ---
ASSUMED CARE OF PT AT 1900 PT ALERT AND ONLY ORIENTED TO SLEF AND NEEDS REDIRECTION TO LEAVE MONITORS ON. PT VS AND ASSESSMENT AT PTS BASELINE. TELEMETRY RUNNING NSR TO ST. PT HAD ONE RUN OF 12 BEATS OF VTACH NOTIFIED PROVIDER LABS ORDERED AND PTS MG WAS CRITICAL LOW 0.[address] BLANTON AND BEGAN REPLACEMENT. PT DENIED ANY COMPLAINTS AND SLEPT THROUGH THE NIGHT. WILL CONTINUE PLAN OF CARE.
--- NOTE | 2018-05-23 08:14 | NUR ---
1211 ASSUMED CARE OF PATIENT. PLEASE SEE DOCUMENTED ASSESSMENT. PT IS ORIENTED X 2 TODAY. TOM IS FOR TRANSFER OUT OF ICU
--- NOTE | 2018-05-23 08:27 | NUR ---
PT TP TRANSFER TO ROOM 211
--- NOTE | 2018-05-23 09:06 | NUR ---
MESSAGE LEFT FOR SPOUSE ABOUT ROOM TRANSFER. SPOKE WITH DR ABREU ABOUT UROLOGY CONSULT AND PATIENT STATUS.
--- NOTE | 2018-05-23 09:20 | NUR ---
TO 211 PER BED WITH ALL RECORDS AND BELONGINGS. REPORT TO IRWIN FRAUSTO
[2018-05-23 09:42] LABS: URINE BILIRUBIN NEGATIVE (Negative); URINE BLOOD 2+ (Negative); URINE CLARITY CLEAR; URINE COLOR YELLOW; URINE GLUCOSE-RANDOM NEGATIVE (Negative); URINE KETONES NEGATIVE (Negative); URINE NITRITE-REFLEX NEGATIVE (Negative); URINE PROTEIN TRACE (Negative); URINE UROBILINOGEN 0.2 E.U./dl (0.2-1.0)
[2018-05-23 09:43] LABS: URINE LEUKOCYTES-REFLEX 2+ (Negative)
[2018-05-23 10:17] LABS: MUCUS None Seen strn/LPF (None Seen); SQUAMOUS NONE SEEN /LPF (0-3)
[2018-05-23 10:18] LABS: BACTERIA-REFLEX 1-9 Few /HPF (None Seen); CASTS None Seen /LPF (None Seen); CRYSTALS None Seen /LPF (None Seen); URINE RBC 0-2 Rare /HPF (0-2); URINE WBC-REFLEX >25 Many /HPF (0-5); WBC CLUMPS Few (None Seen)
--- NOTE | 2018-05-23 10:43 | NUR ---
VSS, ASSUMED CARE OF PT FROM ICU. PT HAS ANGEL IN PLACE AND IS DRAINING, [place] IS A&O2 BUT CONFUSED, PT IS ON RA, TRACING SR ON THE MONITOR, IS ON RA AND DENIES ANY PAIN, PT GOAL IS SAFETY AND TO SIT UP IN CHAIR WITH MEALS, WILL FOLOW WITH PLAN OF CARE, I AGREE WITH ICU FINDINGS AND ASSESSMENTS,
--- NOTE | 2018-05-23 19:23 | CON ---
[address] [address] CONSULTATION Name: SHADIA MILES Room: [address] IN M.R.#: [id number] Admission: 05/22/18 Attend Phys: Jeevan Gordon MD Discharge: Date of : 45 Report #: [id number] THIS REPORT FOR: //name// [facility] DATE OF SERVICE: 05/22/2018 REASON FOR CONSULTATION: I was asked to evaluate concerning urinary tract infection and sepsis. HISTORY OF PRESENT ILLNESS: The patient is a 72-year-old, with underlying diabetes, previous stroke and dementia, who has had BPH with bladder outlet obstruction, who previously underwent cystoscopy, transurethral resection of the prostate on 04/30/[address] Pan. No intraoperative complications were noted. Postoperatively, developed urinary tract infection and was hospitalized from 05/05/2018 through 05/10/2018. Treated with vancomycin and Levaquin, was dismissed on 05/10/2018 to finish his course of Levaquin through the next week. Urine culture from that admission revealed Enterobacter that was sensitive to cefepime, ertapenem, Zosyn, gentamicin and tobramycin. He returns now with confusional state for the last 24 hours. No fever. He has been tachycardic. The patient was unable to give any details due to his dementia. I reviewed the medical record and discussed with nursing who was in attendance. He continues with urinary catheter in place. Urinary output has been reasonable. He was able to eat and drink fluids. He has received IV fluids since admission. REVIEW OF SYSTEMS: Notes no skin rashes or decubiti. He has had no recent weight loss. Denies any headache or photophobia. There has been no oral lesions. He is essentially edentulous with 1 tooth remaining. No other cardiopulmonary complaints. Denies any gastroesophageal reflux, abdominal pain or diarrhea. Again, has his urinary catheter in place with no back or flank pain. He has had no arthritis symptoms. No recent stroke or neurologic issues. No adenopathy or hematologic issues. No allergic issues. ALLERGIES: None. MEDICATIONS: As noted on his MAR, now on Zosyn. PAST MEDICAL HISTORY: Diabetes, hypertension, stroke, hyperlipidemia, BPH. SOCIAL HISTORY: He is a past smoker. No significant alcohol intake. Previously, he was living with his , but most recently, he was in the halfway unit. FAMILY HISTORY: [place] [address] CONSULTATION Name: SHADIA MILES Room: [address]#: [id number] Admission: 05/22/18 Attend Phys: Jeevan Gordon MD Discharge: Date of : 45 Report #: [id number] PHYSICAL EXAMINATION: VITAL SIGNS: Currently afebrile. He is tachycardic. Blood pressure was stable. GENERAL: He is alert and cooperative, able to move in bed on his own. SKIN: Unremarkable. Peripheral IV in place. HEENT: Noted. Eyes unremarkable with no conjunctivitis or icterus. Mouth: No ulcerations or thrush with 1 tooth to the lower ridge of his mandible. NECK: Supple with no thyromegaly or mass. No lymphadenopathy palpable. LUNGS: Clear with no adventitial sounds. HEART: Regular, without murmur, gallop or rub. ABDOMEN: Soft, nontender, no hepatosplenomegaly or mass appreciated. He did have a small umbilical hernia. No CVA tenderness. Genitourinary: External genitalia unremarkable with indwelling Baez catheter. No testicular swelling or tenderness. RECTAL: Not performed. EXTREMITIES: Unremarkable with no peripheral edema. Pulses were adequate in his feet. NEUROLOGIC: Nonfocal. Although the patient was alert, he was confused. LABORATORY STUDIES: Chest x-ray was clear. Sodium 137, potassium 4.3, bicarbonate 20, creatinine 2, which is up from his baseline of 0.9. Liver function test normal. Hemoglobin 11.8, platelet count 379,000, white count 12.5 with 72% segs, 17% lymphs. Urinalysis with pyuria and bacteriuria. Blood and urine cultures are pending. IMPRESSION: 1. Complicated urinary tract infection with sepsis and change in mental status. Much of this may have been related to hydration regarding his mental status. He does have acute kidney injury. I did review his previous CT scan from earlier in the month, which did show a solitary retroperitoneal lymph node over 2 cm in size along with bladder wall thickening and nonobstructing nephrolithiasis. I am suspecting urinary tract infection again is the source of his change in status. With the rise in creatinine, we would also want to ensure he do not have urinary obstruction issue. 2. Underlying cerebrovascular disease. 3. Hypertension. 4. Diabetes. RECOMMENDATION: We will continue Zosyn adjusted for his renal insufficiency. Agree with fluid management and follow up laboratory studies including CBC and chemistry. We will screen with an ultrasound to ensure no ureteral obstruction. Further followup of the retroperitoneal adenopathy may be in order. <ELECTRONICALLY SIGNED> By: Umberto Vanegas MD 05/23/18 [id number] Vanegas MD /nt
[2018-05-24] VITALS: BP 161/73
--- NOTE | 2018-05-24 03:55 | NUR ---
ASSUMED PT CARE AT 1930, PT IS A&OX2, PERSON AND PLACE. PT IS STILL CONFUSED AT TIMES. BUT IS EASILY REDIRECTED. TRACING NSR ON THE MONITOR, ON RA SATTING MID TO HIGH 90'S. PT DENIES ANY PAIN OR NEEDS AT THIS TIME. PT IMPULSIVLY TRIED TO CLIMB OUT OF BED A FEW TIMES. PT GIVEN INSTRUCTION TO STAY IN BED. BED IN LOW POSITION, CALL LIGHT IN REACH, BED ALARM ON. YELLOW ARM BAND AND SOCKS IN PLACE. HOURLY ROUNDING COMPLETED FOR PT SAFETY. ANGEL TO DD, TIP OF PENIS STILL VERY RED, NYSTATIN CREAM APPLIED SCHEDUELD.
[2018-05-24 04:30] VITALS: BP 173/85
[2018-05-24 05:26] LABS: HEMOGLOBIN 11.6 gm/dL (14.0-18.0); MCH 28.5 pg (26.0-34.0); MCV 86.5 fL (80.0-100.0); MPV 7.3 fl. (7.2-11.1); RBC 4.05 mil/uL (4.50-6.00); RDW-CV 13.1 % (10.5-14.5); WBC 10.4 thou/uL (4.0-11.0)
[2018-05-24 05:38] LABS: ALBUMIN 2.6 g/dL (3.4-5.0); CALCIUM 7.9 mg/dL (8.5-10.1); CREATININE 1.3 mg/dL (0.6-1.3); MAGNESIUM 1.5 mg/dL (1.8-2.4); TOTAL BILIRUBIN 0.3 mg/dL (<0.1-1.0); TOTAL PROTEIN 6.5 g/dL (6.4-8.2)
[2018-05-24 08:10] VITALS: BP 143/95
--- NOTE | 2018-05-24 10:21 | NUR ---
ASSUMED CARE OF PT AT 0730. PT RESTING IN BED. PT A&0X2-3, FORGETFUL AND CONFUSED AT TIMES. FAMILY AT BEDSIDE THIS AM. PT TRACING SR ON THE HARDWARE DESIGN ENGINEER. ON RA SAT UPPER 90'S. PT DENIES ANY PAIN OR SHORTNESS OF BREATH AT THIS TIME. ANGEL TO DEPENDENT DRAINAGE PER UROLOGY. DR BLANTON REQUESTED URINE CULTURE RESULTS FROM ADMIT. LAB NOTIFIED. EXPECTED RESULTS BY TOMORROW 05/25. DR BLANTON HERE TO SEE PT AND STARTED ON DIFLUCAN IV. PT UP SBA TO BATHROOM. MAGNESIUM BEING REPLACED PER ELECTROLYTE PROTOCOL. AM ASSESSMENT CHARTED. MEDICATIONS PER DEC. PT REPOSITIONS SELF. HOURLY ROUNDING OBSERVED. BED IN LOW POSITION. CALL LIGHT WITHIN REACH. WILL CONTINUE PLAN OF CARE.
[2018-05-24 11:58] VITALS: BP 155/89
--- NOTE | 2018-05-24 12:40 | NUR ---
Pt is A&O. Resides at home with , in room at bedside. Pt has been at [facility] for the past few weeks. Pt plans to return home at pa. Spoke with Iris at [facility] and confirmed that they are able to accept Pt back at pa, pending insurance auth, if Pt changes his mind about returning home. Pt has a cane and walker at home that he can use for mobility. Hx of [facility], but Pt apparently refused HH when they went to his home. states that the [facility] nurse will be coming to their home to check on Pt at pa. Discussed HH, stated that they would think about it. Pt's son has moved into the home to assist as needed. Following.
[2018-05-24 15:55] VITALS: BP 153/87
--- NOTE | 2018-05-24 17:25 | NUR ---
NO ACUTE CHANGES THROUGHOUT SHIFT. REFER TO CHARTING. PT CONTINUES TO BE FORGETFUL AND CONFUSED THROUGHOUT SHIFT. BED ALARM IN PLACE. PT TRACING SR ON THE PEDIATRIC DENTIST. ON RA SAT UPPER 90'S. DENIES ANY SHORTNESS OF BREATH OR PAIN AT THIS TIME. ANGEL TO DEPENDENT DRAINAGE. PT UP SBA TO BATHROOM. AT BEDSIDE THROUGHOUT SHIFT. UPDATED ON CURRENT CARE PLAN. MANGESIUM BEING REPLACED PER ELECTROLYTE PROTOCOL. PT WORKED WITH PT AND OT TODAY- TOLERATED WELL. MEDICATIONS PER DEC. PT STARTED ON NEW ANTIBIOTIC PER DR BLANTON. PT REPOSITIONS SELF WITH REMINDERS. HOURLY ROUNDING OBSERVED. BED IN LOW POSITION. BED ALARM IN PLACE. FALL PRECAUTIONS IN PLACE. CALL LIGHT WITHIN REACH. WILL CONTINUE PLAN OF CARE.
[2018-05-24 19:25] VITALS: BP 168/90
[2018-05-25] VITALS: BP 175/86
[2018-05-25 04:00] VITALS: BP 186/81
--- NOTE | 2018-05-25 05:34 | NUR ---
PT AAOX3 AT BEGINNING OF SHIFT, BECAME CONFUSED NIGHT WENT ON. RESP REG AND UNALBORED SKIN W/D RIGO CUTE DISRESS NOTED. TELEMETRY PACKINTACT WITH ALARMS SET. PT PULLED IV OUT AND REMOVED FOELY BAG FROM CATHETER DURING NIGHT AND REMOVED GOWN AND REFUSED TO PUT BACK ON. ATEMPTED TO REORIENT PT TO SURROUNDS UNSUCCESSFUL. VSS WILL CONTINUE TO MONITOR
[2018-05-25 08:00] VITALS: BP 184/83
--- NOTE | 2018-05-25 10:18 | NUR ---
ASSUMED CARE OF PT AT 0730. PT RESTING IN BED WAITING FOR BREAKFAST. PT A&0X3, FORGETFUL AND CONFUSED AT TIMES. PT TRACING SR ON THE DRAFTING LAYOUT WORKER. ON RA SAT UPPER 90'S. PT DENIES ANY SHORTNESS OF BREATH OR PAIN AT THIS TIME. ANGEL TO DEPENDENT DRAINAGE. PT UP SBA TO BATHROOM. PT GOAL FOR TODAY IS TO WORK WITH PHYSICAL AND OCCUPATIONAL THERAPY AND UP TO CHAIR FOR MEALS TO INCREASE ACTIVITY. AM ASSESSMENT CHARTED. MEDICATIONS PER DEC. PT REPOSITIONS SELF. HOURLY ROUNDING OBSERVED. BED IN LOW POSITION. CALL LIGHT WITHIN REACH. WILL CONTINUE PLAN OF CARE.
[2018-05-25 12:42] VITALS: BP 151/85
[2018-05-25 16:26] VITALS: BP 161/80
--- NOTE | 2018-05-25 17:41 | NUR ---
NO ACUTE CHANGES THROUGHOUT SHIFT. REFER TO CHARTING. PT MADE MED SURG STATUS. PT WORKED WITH PHYSICAL AND OCCUPATIONAL THERAPY-AMBULATED IN HALLWAY AND TOLERATED WELL. ANGEL TO DEPENDENT DRAINAGE. SLOWLY PROGRESSING TOWARDS GOALS. DENIES ANY PAIN OR SHORTNESS OF BREATH THROUGHOUT SHIFT. AT BEDSIDE THROUGHOUT MOST OF SHIFT AND UPDATED ON CURRENT CARE PLAN. MEDICATIONS PER DEC. PT REPOSITIONS SELF WITH REMINDERS. HOURLY ROUNDING OBSERVED. BED IN LOW POSITION. CALL LIGHT WITHIN REACH. WILL CONTINUE PLAN OF CARE.
[2018-05-26] VITALS: BP 150/93
--- NOTE | 2018-05-26 05:05 | NUR ---
PT AAOX3. PT HAS NOT BEEN CONFUSED THIS SHFIT. RESP REG AND UNALBORED SKIN W/D WITH NO ACUTE DISTRESS NOTED. ANGEL INTACT AND PATENT DRAINING YELLOW URINE TO BEDSIDE BAG. WILL CONTINUE TO MONITOR
[2018-05-26 09:00] VITALS: BP 213/104
--- NOTE | 2018-05-26 13:36 | NUR ---
ASSUMED PT CARE AT 0700 PT IS ALERT AND ORIENTED X 4 PT DENIES PAIN OR SOA, PT IS UP WITH ASSIST PT IS A FALL RISK BED ALARM IS ON, PT IS MEDICAL SURGICAL STATUS, PHYSICIAN PLACED ORDER FOR PICC LINE SPOKE WITH INFUSION NURSE WHO STATED NEEDS THE REASON TO QUALIFY FOR PICC THIS NURSE PAGED PHYSICIAN THREE TIMES AWAITING CALL BACK, WILL CONTINUE TO MONITOR
--- NOTE | 2018-05-26 14:58 | NUR ---
Pt will need IVABX at dc, Picc to be placed today. Discussed ABX options with Pt and , per Aurelio, supplies will be 107.80/week and med will be 94.28/week. Per they are not able to afford this. Pt will be on the med BID, so does not qualify for outpt. Decision to return to [facility] at ar. Faxed referral. Anticipate dc soon.
--- NOTE | 2018-05-26 15:15 | NUR ---
CONSULTED TO PLACE PICC FOR TRIP RIDER ATB NEED FOR COMPLICATED UTI. CONSENT AND ORDER NOTED. RIGHT UPPER ARM ASSESSED WITH ULTRASOUND. RIGHT BASILIC IDENTIFED AND NOTED TO BE WIDLEY PATENT. SINGLE LUMAN POWER PICC PLACED PER HOSPITAL POLICY. LINE TRIMMED TAT 48CM AND ADVANCED 43CM LEAVING 5CM EXTERNAL. GOOD BRISK BLOOD RETURN AND EASY FLUSH. TIP CONFIRMED WITH SHERLOCK 3CG. LINE SECURED AND RELEASED FOR USE.
[2018-05-26 16:00] VITALS: BP 161/86
[2018-05-26 19:25] VITALS: BP 159/77
[2018-05-27] VITALS: BP 170/90
[2018-05-27 05:06] LABS: HEMATOCRIT 37.7 % (42.0-52.0); HEMOGLOBIN 12.5 gm/dL (14.0-18.0); MCH 28.6 pg (26.0-34.0); MCHC 33.2 g/dL (28.0-37.0); MCV 86.1 fL (80.0-100.0); MPV 7.5 fl. (7.2-11.1); RBC 4.38 mil/uL (4.50-6.00); RDW-CV 12.9 % (10.5-14.5); WBC 10.6 thou/uL (4.0-11.0)
[2018-05-27 05:07] LABS: ALBUMIN 2.8 g/dL (3.4-5.0); CALCIUM 8.8 mg/dL (8.5-10.1); CREATININE 1.2 mg/dL (0.6-1.3); MAGNESIUM 1.3 mg/dL (1.8-2.4); POTASSIUM 3.9 mmol/L (3.5-5.1); TOTAL BILIRUBIN 0.2 mg/dL (<0.1-1.0); TOTAL PROTEIN 6.6 g/dL (6.4-8.2)
[2018-05-27 05:13] LABS: URINE BILIRUBIN NEGATIVE (Negative); URINE BLOOD 2+ (Negative); URINE CLARITY CLEAR; URINE COLOR YELLOW; URINE GLUCOSE-RANDOM NEGATIVE (Negative); URINE KETONES NEGATIVE (Negative); URINE LEUKOCYTES-REFLEX 2+ (Negative); URINE NITRITE-REFLEX NEGATIVE (Negative); URINE PROTEIN TRACE (Negative); URINE SPECIFIC GRAVITY 1.015 (1.005-1.030); URINE UROBILINOGEN 0.2 E.U./dl (0.2-1.0)
--- NOTE | 2018-05-27 05:22 | NUR ---
[T AAOX3, WAS SLIGHTLY CONFUSED DURING THE NITE. RESP REG AND UNLABORED SKIN W/D NO ACUTE DISTRESS NOTED. ANGEL INTACT ANDPATENT DRAINING YELLOW URINE TO BEDSIDE BAG. URINE CULTURE SENT TO LAB ORDERED. VSS AND NO ACUTE CHANGES DURIGN SHIFT WILLCONTINUE TO MONITOR
[2018-05-27 05:32] LABS: BACTERIA-REFLEX 1-9 Few /HPF (None Seen); MUCUS 0-3 Light strn/LPF (None Seen); SQUAMOUS 0-3 Few /LPF (0-3); URINE RBC 3-10 Few /HPF (0-2); URINE WBC-REFLEX 6-15 Few /HPF (0-5)
[2018-05-27 05:33] LABS: CASTS None Seen /LPF (None Seen); CRYSTALS None Seen /LPF (None Seen)
[2018-05-27 08:00] VITALS: BP 156/96
--- NOTE | 2018-05-27 10:23 | NUR ---
ASSUMED CARE OF PT AT 0730. PT RESTING IN BED. PT A&0X3, FORGETFUL AND CONFUSED AT TIMES. PT DENIES ANY PAIN OR SHORTNESS OF BREATH. PT MED SURG STATUS. ON RA SAT UPPER 90'S. ANGEL TO DEPENDENT DRAINAGE WITH YELLOW URINE. NYSTATIN TO TIP OF PENIS. NEW STAT LOCK PLACED. PT UP SBA TO BATHROOM. MAGNESIUM BEING REPLACED PER ELECTROLYTE PROTOCOL. LIMB ALERT BRACELET PLACED TO RIGHT UE FOR PICC LINE. PT GOAL FOR TODAY IS POSSIBLE DISCHARGE TO [facility] AND REPLACE MAGNESIUM, INCREASE ACTIVITY. AM ASSESSMENT CHARTED. MEDICATIONS PER DEC. PT REPOSITIONS SELF WITH REMINDERS. HOURLY ROUNDING OBSERVED. BED IN LOW POSITION. BED ALARM IN PLACE. FALL PRECAUTIONS IN PLACE. CALL LIGHT WITHIN REACH. WILL CONTINUE PLAN OF CARE.
[2018-05-27] MEDS ORDERED: LANTUS SUBQ ×2 (13:32→15:23)
[2018-05-27] MEDS ORDERED: AMLODIPINE BESYL5 M1 PO (13:32)
[2018-05-27] MEDS ORDERED: FLUCONAZOLE 10100 MG PO (13:32)
[2018-05-27 13:51] VITALS: BP 156/96
[2018-05-27] MEDS ORDERED: MAXIPIME 1 GM/D51 G1 IV (14:09)
[2018-05-27 16:08] VITALS: BP 133/77
--- NOTE | 2018-05-27 16:14 | NUR ---
Pt is discharging to [facility] skilled today, facility to warehouse picker b/t 5-5:30. Updated . Faxed dc orders. Chart copied. Nurse report number provided, .
--- NOTE | 2018-05-27 17:27 | NUR ---
AUTHORIZATION RECEIVED FROM [facility]. DISCHARGE ORDERS RECEIVED. DISCHARGE INSTRUCTIONS, CARE NOTES AND FOLLOW UP APPTS COPIED AND PLACED IN FOLDER FOR TRANSPORT. 2 PERIPHERAL IV'S DISCONTINUED. PT DISCHARGED WITH COUDE ANGEL CATHETER- PLACED BY UROLOGY- PLAN IS TO FOLLOW UP WITH UROLOGY IN 1 WEEK AND PLAN VOIDING TRIAL. PT DISCHARGED WITH RIGHT UPPER ARM SINGLE LUMEN PICC LINE FOR IV CEFEPIME FOR 12 DAYS. MAGNESIUM REPLACED PER ELECTROLYTE PROTOCOL. PT TO BE DISCHARGED WITH ALL BELONGINGS AND PAPERWORK VIA [facility]. AWAITING TRANSPORTATION AT THIS TIME. REPORT CALLED TO BESSY AT [facility].
== END 2018-05-27 17:39 | DRG 871 ==
LOC: M.ERS 21:11 → M.2W 05-22 00:01 → M.TBA-ER 05-22 00:01 → M.ICU 05-22 00:01 → M.2W 05-23 09:19
PROVIDERS: Emergency Medicine; Internal Medicine; ADMIT Internal Medicine
PROC: 05HY33Z Insertion of Infusion Device into Upper Vein, Percutaneous Approach (ICD-10-PCS; principal; 2018-05-27)
DX: A41.9 Sepsis, unspecified organism (principal); G92 Toxic encephalopathy; N17.0 Acute kidney failure with tubular necrosis; N39.0 Urinary tract infection, site not specified; E44.1 Mild protein-calorie malnutrition; I47.2 Ventricular tachycardia; E11.9 Type 2 diabetes mellitus without complications; I10 Essential (primary) hypertension; E78.5 Hyperlipidemia, unspecified; E87.5 Hyperkalemia; E78.00 Pure hypercholesterolemia, unspecified; N40.0 Benign prostatic hyperplasia without lower urinary tract symptoms; Z87.891 Personal history of nicotine dependence; Z86.73 Personal history of transient ischemic attack (TIA), and cerebral infarction without residual deficits; Z79.899 Other long term (current) drug therapy; Z68.25 Body mass index [BMI] 25.0-25.9, adult

== ENCOUNTER 2018-06-19 13:38 | Inpatient (IN) | payer OTHER ==
[~2018-06-19] VITALS: Ht 172.7 cm; Wt 75.3 kg
[~2018-06-19 13:38] MED LIST changes: +AMLODIPINE BESYL5 M1 PO; +FLUCONAZOLE 10100 MG PO; +LANTUS SUBQ; +MAXIPIME 1 GM/D51 G1 IV
[2018-06-19 13:43] VITALS: BP 147/68
[2018-06-19 14:18] LABS: ABSOLUTE BASOPHILS 0.1 thou/uL (0.0-0.2); ABSOLUTE EOSINOPHILS 0.4 thou/uL (0.0-0.7); ABSOLUTE LYMPHOCYTES 1.9 thou/uL (0.8-5.3); ABSOLUTE MONOCYTES 0.9 thou/uL (0.0-1.2); ABSOLUTE NEUTROPHILS 12.9 thou/uL (1.6-8.1); BASOPHILS 0.6 %; EOSINOPHILS 2.7 %; HEMOGLOBIN 13.1 gm/dL (14.0-18.0); LYMPHOCYTES 11.8 %; MCH 27.9 pg (26.0-34.0); MCHC 32.7 g/dL (28.0-37.0); MCV 85.2 fL (80.0-100.0); MONOCYTES 5.6 %; MPV 7.6 fl. (7.2-11.1); NUCLEATED RBCS 0 /100WBC; PLATELET COUNT* 359 thou/uL (150-400); POLYS 79.3 %; RBC 4.69 mil/uL (4.50-6.00); RDW-CV 13.7 % (10.5-14.5); WBC 16.3 thou/uL (4.0-11.0)
[2018-06-19 14:27] LABS: ANION GAP 10 mmol/L (7-16); BUN 24 mg/dL (7-18); CALCIUM 9.6 mg/dL (8.5-10.1); CHLORIDE 102 mmol/L (98-107); CO2 27 mmol/L (21-32); CREATININE 1.3 mg/dL (0.6-1.3); GLUCOSE 145 mg/dL (70-99); POTASSIUM 3.9 mmol/L (3.5-5.1); SODIUM 139 mmol/L (136-145)
[2018-06-19 14:37] LABS: ALBUMIN 3.4 g/dL (3.4-5.0); ALKALINE PHOSPHATASE 97 U/L (46-116); LIPASE 157 U/L (73-393); NT-PRO BRAIN NAT PEPTIDE 175 pg/mL (<300); SGOT 14 U/L (15-37); SGPT 18 U/L (30-65); TOTAL BILIRUBIN 0.4 mg/dL (<0.1-1.0); TOTAL PROTEIN 8.1 g/dL (6.4-8.2); TROPONIN-I LEVEL <0.06 ng/mL (<0.06)
[2018-06-19 16:08] LABS: URINE BILIRUBIN NEGATIVE (Negative); URINE BLOOD 2+ (Negative); URINE CLARITY CLEAR; URINE COLOR YELLOW; URINE GLUCOSE-RANDOM NEGATIVE (Negative); URINE KETONES NEGATIVE (Negative); URINE NITRITE-REFLEX NEGATIVE (Negative); URINE PROTEIN 2+ (Negative); URINE UROBILINOGEN 0.2 E.U./dl (0.2-1.0)
[2018-06-19 16:09] LABS: URINE LEUKOCYTES-REFLEX 3+ (Negative)
[2018-06-19 16:14] LABS: CASTS None Seen /LPF (None Seen); CRYSTALS None Seen /LPF (None Seen); SQUAMOUS 0-3 Few /LPF (0-3); URINE RBC 3-10 Few /HPF (0-2); URINE WBC-REFLEX >25 Many /HPF (0-5)
[2018-06-19 16:36] VITALS: BP 146/82
--- NOTE | 2018-06-19 17:39 | NUR ---
PT ARRIVED TO UNIT AT 1650 VIA GURNEY AND ED ACRYLIC FABRICATOR, MIA. PT TRANSFERRED TO BED, TELE MONITOR PLACED AND VS OBTAINED. PT IS SR ON MONITOR. IV SL. PROVIDED ORIENTATION TO ROOM AND CALL LIGHT. PT IN NO APPARENT DISTRESS, STATES HE IS NOT NAUSEATED OR IN PAIN. CALL LIGHT IN REACH.
[2018-06-19] MEDS ORDERED: MOBIC15 MG PO (18:52)
--- NOTE | 2018-06-19 19:30 | NUR ---
PAGED DR. VILLALPANDO TO CLARIFY PT'S HOME LANTUS DOSE OF 65 UNITS PER MED RECONCILIATION WITH . DR. VILLALPANDO STATES WE WILL HOLD LANTUS D/T PT'S N/V. REPORTED TO THAT PT HAD EVENING MEAL WITH NO VOMITING OR C/O NAUSEA. DR. VILLALPANDO ORDERED MODERATE SLIDING SCALE INSULIN ORDER. ORDER PLACED IN PAPER CHART AND FAXED TO PHARMACY. ORDER IS NOW ON EMAR. MED RECONCILIATION CONVERSATION WITH REVEALS THAT PT WAS TAKING DONEZIPIL 5 MG, TAMSULOSIN 0.4 MG AND FLUOXETINE, HOWEVER, HIS HOME HEALTH NURSE TOLD THEM TO STOP TAKING THESE MEDICATIONS. REVIEWED HOME MEDS WITH AND UPDATED MED RECONCILIATION TAB IN PT'S EMR.
[2018-06-19 20:00] VITALS: BP 170/80
--- NOTE | 2018-06-19 21:15 | NUR ---
DOCTOR IRASEMA NOTIFIED OF PATIENT'S INCREASE BLOOD PRESSURE, SEE ORDERS.
[2018-06-20] VITALS: BP 159/87
--- NOTE | 2018-06-20 02:10 | NUR ---
PATIENT RESTED IN BED, NO ACUTE CHANGES. PATIENT DID NOT SHOW SIGNS OF DISTRESS, PATIENT DID NOT COMPLAIN OF NAUSEA OR VOMITING. NO FEVER WAS NOTED. FALL PRECAUTIONS IN PLACE, BED ALARM ON, CALL LIGHT WITH IN REACH, HOURLY ROUNDING OBSERVED.
[2018-06-20 04:00] VITALS: BP 165/88
[2018-06-20 07:55] VITALS: BP 135/75
--- NOTE | 2018-06-20 10:25 | EKG ---
[place] [address] ELECTROCARDIOGRAM REPORT Name: SHADIA MILES Room: [address] ADM IN M.R.#: [id number] Admission: 06/19/18 Attend Phys: Collin Chan, Discharge: Date of : 45 Report #: [id number] THIS REPORT FOR: //name// [facility] ED Test Date: 2018-06-19 Test Time: 14:13:06 Pat Name: SHADIA MILES Department: Room: [facility] Gender: M Wire Splicer: : 1945 Requested By: Debra Chan Order Number: [id number] MD: Gus Patricia Measurements Intervals [place] Rate: 95 P: 54 SD: 150 QRS: 44 QRSD: 89 T: 91 QT: 350 QTc: 440 Interpretive Statements Sinus rhythm Baseline wander in lead(s) V1,V2 Compared to ECG 05/21/2018 21:41:26 T-wave abnormality no longer present ST (T wave) deviation no longer present Electronically Signed On 06-20-2018 10:25:33 CDT by Gus Patricia [email or web address] <ELECTRONICALLY SIGNED> By: Gus Patricia MD, [facility] 06/20/18 1025 1413 1413 Gus Patricia MD, [facility] /EPI
--- NOTE | 2018-06-20 10:26 | EKG ---
[place] [address] ELECTROCARDIOGRAM REPORT Name: SHADIA MILES Room: [address] ADM IN M.R.#: [id number] Admission: 06/19/18 Attend Phys: Collin Chan, Discharge: Date of : 45 Report #: [id number] THIS REPORT FOR: //name// [facility] ED Test Date: 2018-06-19 Test Time: 14:46:41 Pat Name: SHADIA MILES Department: Room: [address] Gender: M Plugger: DEREKK : 1945 Requested By: Debra Chan Order Number: [id number] Bentley MD: Gus Patriica Measurements Intervals [place] Rate: 90 P: 60 OK: 147 QRS: 43 QRSD: 94 T: 91 QT: 349 QTc: 427 Interpretive Statements Sinus rhythm artifact noted Probable left atrial enlargement Minimal ST elevation, anterior leads Electronically Signed On 06-20-2018 10:26:27 CDT by Gus Patricia [email or web address] <ELECTRONICALLY SIGNED> By: uGs Patricia MD, [facility] 06/20/18 1026 1446 1446 Gus Patricia MD, [facility] /EPI
[2018-06-20 12:00] VITALS: BP 132/72
--- NOTE | 2018-06-20 15:00 | NUR ---
ASSUMED CARE OF PT AT 0730, AFTER RECEIVING REPORT FROM NOC RN. PT ALERT TO SELF WITH FLAT AFFECT. PT WITHOUT C/O N/V, PAIN OR DISTRESS. MANAGER FINANCIAL SERVICES IN PLACE, SR. IV SL. O2 SATS 98% ON RA. ANGEL CATHETER DNG CLDY URINE TO DEPENDENT DRNG. ASSESSMENT COMPLETE. MEDS PER DEC. CALL LIGHT IN REACH.
[2018-06-20 16:00] VITALS: BP 156/78
[2018-06-20 20:00] VITALS: BP 148/75
[2018-06-21] VITALS: BP 134/72
--- NOTE | 2018-06-21 03:38 | NUR ---
ASSUMED PT CARE AT 1930, NURSING ASSESSMENT COMPLETED AT START OF SHIFT, PT VOICED NO CONCERNS THIS SHIFT. PATIENT TRACING SINUS RHYTHM. DENIES N/V THIS SHIFT. HOURLY ROUNDING COMPLETED, FALL PRECAUTIONS IN PLACE, CALL LIGHT WITHIN REACH.
[2018-06-21 04:00] VITALS: BP 131/71
[2018-06-21 05:00] LABS: HEMATOCRIT 36.5 % (42.0-52.0); HEMOGLOBIN 11.9 gm/dL (14.0-18.0); MCHC 32.5 g/dL (28.0-37.0); MCV 86.1 fL (80.0-100.0); MPV 7.9 fl. (7.2-11.1); RBC 4.24 mil/uL (4.50-6.00); RDW-CV 13.8 % (10.5-14.5); WBC 12.1 thou/uL (4.0-11.0)
[2018-06-21 05:45] LABS: ALBUMIN 2.9 g/dL (3.4-5.0); CALCIUM 9.2 mg/dL (8.5-10.1); CREATININE 1.3 mg/dL (0.6-1.3); MAGNESIUM 1.1 mg/dL (1.8-2.4); POTASSIUM 4.3 mmol/L (3.5-5.1); TOTAL BILIRUBIN 0.3 mg/dL (<0.1-1.0); TOTAL PROTEIN 6.6 g/dL (6.4-8.2)
[2018-06-21 08:00] VITALS: BP 145/77
[2018-06-21 11:59] VITALS: BP 141/81
--- NOTE | 2018-06-21 16:10 | NUR ---
SW met with pt to complete initial assessment, introduce self, and SW role. Pt alert, oriented. Pt was at [facility] most recently dc there from hospital on 05/27. Pt goal to be able to return home with . Pt hopeful to be able to dc home with and HH services. SW was informed that pt wants to update his DPOA updated to add pt doreen Lenz as an alternate agent, SW explained to pt that he can add info to DPOA and initial, he does not have to create a new DPOA form. SW to continue to follow to assist with safe dc planning.
[2018-06-21 16:22] VITALS: BP 122/60
[2018-06-21 20:15] VITALS: BP 144/84
[2018-06-22] VITALS (8 sets, daily range): BP systolic 104–164; BP diastolic 50–91
[2018-06-22 02:06] LABS: GLYCOHEMOGLOBIN (HGB A1C) 7.3 % (4.8-5.6)
--- NOTE | 2018-06-22 03:39 | NUR ---
ASSUMED PT CARE AT 2009. PT VOICED NO CONCERNS THIS SHIFT. NURSING ASSESSMENT COMPLETED. PT TRACING SINUS RHYTHM THIS SHIFT. DENIES PAIN, HOURLY ROUNDING COMPLETED, FALL PRECAUTIONS IN PACE, Q2H REPOSITIONING COMPLETED. CALL LIGHT WITHIN REACH.
[2018-06-22 05:36] LABS: CALCIUM 9.2 mg/dL (8.5-10.1); CREATININE 1.2 mg/dL (0.6-1.3); MAGNESIUM 1.2 mg/dL (1.8-2.4); POTASSIUM 4.7 mmol/L (3.5-5.1)
--- NOTE | 2018-06-22 08:30 | NUR ---
RECEIVED REPORT. ASSUMED CARE OF PT AT 0730. VSS. CARDIAC MONITORING IN PLACE SR WITH FREQUENT PAC. AM ASSESSMENT AND VITALS COMPLETED CHARTED. PT ALERT AND ORIENTED X2-3. PT FORGETFUL. PT ON RA. MAGNESIUM INFUSING THIS AM. PT DENIES ANY COMPLAINTS OF PAIN OR DISCOMFORT THIS AM. PT HAS ANGEL IN PLACE FOR RETENTION. PT INFORMED OF PLAN OF CARE. CALL LIGHT IS WITHIN REACH. WILL CONTINUE TO MONITOR FOR DURATION OF SHIFT.
[2018-06-23 04:00] VITALS: BP 122/63
--- NOTE | 2018-06-23 07:04 | NUR ---
PATIENT RESTED IN BED, NO ACUTE CHANGES. PATIENT DID NOT SHOW SIGNS OF DISTRESS. FALL PRECATUIONS IN PLACE, BED ALARM ON, CALL LIGHT WITH IN REACH, HOURLY ROUNDING OBSERVED.
[2018-06-23 07:41] VITALS: BP 131/75
--- NOTE | 2018-06-23 08:15 | NUR ---
RECIEVED REPORT. ASSUMED CARE OF PT AT 0730. VSS. CARDIAC MONITORING IN PLACE SR. AM ASSESSMENT AND VITALS COMPLETED CHARTED. PT ALERT AND ORIETNED. PT ON RA. IV SALINE LOCKED. PT IS UP WITH ASSISTANCE AND WALKER X1. ANGEL IN PLACE FOR RETENTION. PT DENIES ANY COMPLAINTS OF PAIN OR DISCOMFORT THIS AM. PT ASISSTED UP TO CHAIR FOR BREAKFAST. CALL [facility] WITHINR EACH. WILL CONTINUE TO [facility] FOR DURAITON OF SHIFT.
[2018-06-23 12:33] VITALS: BP 130/69
[2018-06-23 16:00] VITALS: BP 127/71
--- NOTE | 2018-06-23 17:54 | NUR ---
VSS. CARDIAC MONITORING IN PLACE WITH NO CHAGNES THIS SHIFT. PT PROGRESSING TOWARDS GOALS. PT ON RA. IV SALINE LOCKED. ANGEL REMAINS IN PLACE. PT DENIES ANY COMPLAINTS OF PAIN RO DISCOMFORT. PT IS UP WITH ASSISTANCE TO CHAIR. CALL LIGHT IS WITHIN REACH. WILL CONTINUE TO MONITOR FOR DURAITON OF SHIFT.
[2018-06-23 20:00] VITALS: BP 167/90
[2018-06-24] VITALS: BP 154/82
[2018-06-24 04:00] VITALS: BP 115/52
[2018-06-24 04:38] LABS: ABSOLUTE BASOPHILS 0.1 thou/uL (0.0-0.2); ABSOLUTE EOSINOPHILS 0.6 thou/uL (0.0-0.7); ABSOLUTE LYMPHOCYTES 2.6 thou/uL (0.8-5.3); ABSOLUTE MONOCYTES 0.9 thou/uL (0.0-1.2); ABSOLUTE NEUTROPHILS 6.6 thou/uL (1.6-8.1); EOSINOPHILS 5.4 %; HEMATOCRIT 38.4 % (42.0-52.0); HEMOGLOBIN 12.8 gm/dL (14.0-18.0); LYMPHOCYTES 23.7 %; MCH 28.2 pg (26.0-34.0); MCHC 33.3 g/dL (28.0-37.0); MCV 84.9 fL (80.0-100.0); MONOCYTES 8.7 %; MPV 7.8 fl. (7.2-11.1); NUCLEATED RBCS 0 /100WBC; PLATELET COUNT* 316 thou/uL (150-400); POLYS 61.2 %; RBC 4.52 mil/uL (4.50-6.00); WBC 10.8 thou/uL (4.0-11.0)
[2018-06-24 04:59] LABS: ALBUMIN 2.9 g/dL (3.4-5.0); CALCIUM 8.6 mg/dL (8.5-10.1); CREATININE 1.1 mg/dL (0.6-1.3); POTASSIUM 4.2 mmol/L (3.5-5.1); TOTAL BILIRUBIN 0.3 mg/dL (<0.1-1.0); TOTAL PROTEIN 7.1 g/dL (6.4-8.2)
--- NOTE | 2018-06-24 05:47 | NUR ---
ASSUMED CARE OF PT AFTER REPORT AT 1930. PT A&02-3 AND FORGETFUL. VSS. PHYSICAL ASSESSMENT COMPLETED AND CHARTED. PT ON RA WITH 98% O2 SAT. PT TRACING SR PAC ON TELE. PT UP WITH 1 ASSIST TO TOILET. PT WITH ANGEL TO DEPENDENT DRAIN. DENIES ANY PAIN OR DISCOMFORT AT THIS TIME. HOURLY ROUNDING OBSERVED. HS REST & SAFETY GOALS ACHIEVED. CALL LIGHT WITHIN REACH.
[2018-06-24 09:00] VITALS: BP 113/94
[2018-06-24] MEDS ORDERED: ZYVOX600 MG PO (09:35)
[2018-06-24 09:49] VITALS: BP 113/94
--- NOTE | 2018-06-24 09:50 | NUR ---
RESTAURANT LINE COOK SPOKE TO THE PATIENT TO DISCUSS DISCHARGE PLANNING NEEDS AND CHOICE OF HH AT D/C. PATIENT INFORMS THAT HE WOULD LIKE TO USE [facility] HH. RESTAURANT LINE COOK SPOKE TO TANJA WITH [facility] TO INFORM OF THE REFERRAL AND FAXED PATIENTS CLINICAL INFO AND DISCHARGE SUMMARY. [facility] TO CONTACT PATIENT TO SETUP VISIT. CM WILL REMAIN AVAILABLE TO ASSIST AND FOLLOW NEEDED.
[2018-06-24 11:34] VITALS: BP 129/62
--- NOTE | 2018-06-24 12:06 | CON ---
[address] [address] CONSULTATION Name: SHADIA MILES Room: [address] IN ..#: [id number] Admission: 06/19/18 Attend Phys: Collin Chan, Discharge: Date of : 45 Report #: [id number] THIS REPORT FOR: //name// CC: Obdulio Chan DATE OF SERVICE: 06/23/2018 Infectious Disease Consultation ATTENDING PHYSICIAN: Collin Chan MD REASON FOR EVALUATION: Complicated urinary tract infection. This is recurrent with isolation of vancomycin-resistant Enterococcus. HISTORY OF PRESENT ILLNESS: Chart reviewed, patient examined. This is a 72-year-old male who was actually hospitalized last month with complicated urinary tract infection and sepsis at that time with isolation of Enterobacter cloacae, he was at home. Developed nausea with emesis, fevers, does have some underlying dementia. It is somewhat difficult to get a detailed history. He does have urinalysis collected due to concerns about previous hospitalization, possible recurrence, was found to have moderate pyuria, now with growth of vancomycin-resistant enterococcus. For his part, he denies any significant pain or discomfort. No pulmonary or GI related complaints. He has been empirically started on ceftriaxone. ALLERGIES: None known. MEDICATIONS: Include metformin, sodium, amlodipine, lisinopril, and atorvastatin. PAST MEDICAL HISTORY: Includes diabetes mellitus type 2, non-insulin requiring, hypertension, hyperlipidemia, previous strokes. He has some dementia, previous prostatectomy. SOCIAL HISTORY: Former smoker. No ethanol. FAMILY HISTORY: Noncontributory. REVIEW OF SYSTEMS: As above. PHYSICAL EXAMINATION: GENERAL: Easily awakens. He is pleasant, cooperative. He does have some memory deficits, none apparent. He is not overtly distressed. VITAL SIGNS: Temperature 98.0, pulse 81, respirations 16, blood pressure 130/69[place] [address] CONSULTATION Name: SHADIA MILES Room: [address]#: [id number] Admission: 06/19/18 Attend Phys: Collin Chan, Discharge: Date of : 45 Report #: [id number] SKIN: Warm, dry, no rashes. HEENT: Unremarkable. NECK: Supple. LUNGS: Clear to auscultation. HEART: Regular. Does have a soft systolic murmur. ABDOMEN: Soft, nontender, nondistended. There are no peritoneal signs. There is no CVA tenderness. GENITOURINARY: Deferred. RECTAL: Deferred. LABORATORY DATA: Urine cultures as described above with growth of vancomycin-resistant enterococcus faecium including penicillins as well. Electrolytes: Sodium 137, potassium 4.7, chloride 100, bicarbonate is 28, BUN and creatinine 24 and 1.2 and anion gap of 9. Estimated GFR of 60. Hemoglobin A1c of 7.3. Blood cultures sterile thus far. Liver functions unremarkable. Albumin of 2.9, total protein of 6.6. CBC on the : White count 12.1, H and H 11.9 and 36.5, platelets of 311. ASSESSMENT AND PLAN: Complicated urinary tract infection, growth of Enterococcus faecalis, vancomycin resistant. We will adjust therapy including, but not particularly virulent organism. We can exclude it. There is an issue with nausea, emesis, and some low-grade temperature elevations. He has had recent urinary tract infections, certainly has underlying dysfunction secondary to the previous prostatectomy. <ELECTRONICALLY SIGNED> By: Sánchez Cordero MD 06/24/18 1206 1538 [id number] Cordero MD /nt
--- NOTE | 2018-06-24 13:08 | NUR ---
ASSUMED PT CARE AT 0700 PT IS ALERT AND ORIENTED X 4 PT DENIES PAIN OR SOA ON RA, PT IS UP WITH ASSIST X 1 IN THE CHAIR PT IS A FALL RISK BED AND CHAIR ALARMS ARE ON, PT IS SR ON THE MONITOR, HOSPITALIST CLEARED PT TO DISCHARGE IF DR PARRA APPROVED AND TO CHECK SCRIPT WITH DR PARRA, TALKED WITH DR PARRA WHO CLEARED PT FOR DISCHARGE AND SCRIPT APPROVED, PT WILL DISCHARGE WITH HOME HEALTH, WILL CONTINUE TO MONITOR
[2018-06-24 13:41] VITALS: BP 113/94
--- NOTE | 2018-06-25 11:45 | NUR ---
NURSING STATED PT.S HAD CALLED EARLIER SAYING PRESCRIPTION FOR ZYVOX WAS TOO EXPENSIVE AT PHARMACY -WAS OVER $200. THEY COULD NOT AFFORD THIS. DISCUSSED WITH AND DR. BLANTON. SAID HE HAD NO OTHER OPTIONS FOR THEM. SAID TO RECALL PRSCRIPTION FOR 9 DAYS 600MG PO BID #18. CALLED INTO [facility] IN [place]. THIS SCRIPT WOULD BE $128. CALLED AND NOTIFIED . SHE SAID THAT IS STILL TOO MUCH. SHE SAID THEY RECENTLY GOT THEIR CAR REPOSSESSED. THEY RELY ON NEIGHBORS TO DRIVE THEM PLACES. TOLD HER SHE COULD DELIVERY CREW WORKER ENOUGH TO GET THEM THROUGH THE WEEKEND UNTIL THEIR SS CHECK CAME IN. ALSO OFFERED DISCOUNT DRUGH CARD THAT SHE COULD COME TO DELIVERY CREW WORKER. SHE COULD NOT USE INSURANCE WITH IT HOWEVER. DO NOT QUALIFY FOR ZYVOX ASSIST THEY DO HAVE INSURANCE. SHE GOT ANOTHER CALL AND HUNG UP. GRICELDA ORDERED SW TO GO ALONG WITH HOME HEALTH THAT HAD BEEN ORDERED YESTERDAY. FAXED ORDER TO TANJA/[facility].SHE SAID SHE WOULD HAVE THEIR SW CALL PT.TODAY.
== END 2018-06-24 15:30 | disposition home health service (06) | DRG 871 ==
LOC: M.ERS 13:38 → M.TBA-ER 15:53 → M.2W 15:53
PROVIDERS: Internal Medicine; Nurse Practitioner; ADMIT Family Medicine
DX: A41.9 Sepsis, unspecified organism (principal); G93.40 Encephalopathy, unspecified; N39.0 Urinary tract infection, site not specified; E11.9 Type 2 diabetes mellitus without complications; I10 Essential (primary) hypertension; E78.5 Hyperlipidemia, unspecified; B95.2 Enterococcus as the cause of diseases classified elsewhere; Z16.21 Resistance to vancomycin; K21.9 Gastro-esophageal reflux disease without esophagitis; K59.00 Constipation, unspecified; F03.90 Unspecified dementia, unspecified severity, without behavioral disturbance, psychotic disturbance, mood disturbance, and anxiety; Z86.73 Personal history of transient ischemic attack (TIA), and cerebral infarction without residual deficits; Z98.1 Arthrodesis status; Z90.79 Acquired absence of other genital organ(s); Z79.4 Long term (current) use of insulin; Z79.84 Long term (current) use of oral hypoglycemic drugs; Z79.899 Other long term (current) drug therapy; Z87.891 Personal history of nicotine dependence

== ENCOUNTER 2019-05-08 13:23 | Emergency (ER) | payer OTHER ==
[~2019-05-08] VITALS: Ht 177.8 cm; Wt 101.6 kg
[~2019-05-08 13:23] MED LIST changes: +ZYVOX600 MG PO
[2019-05-08 13:27] VITALS: BP 136/69
--- NOTE | 2019-05-09 12:30 | EKG ---
[place] [address] ELECTROCARDIOGRAM REPORT Name: SHADIA MILES Room: [facility]#: [id number] Admission: 05/08/19 Attend Phys: Discharge: 05/08/19 Date of : 45 Report #: [id number] THIS REPORT FOR: //name// [facility] ED Test Date: 2019-05-08 Test Time: 13:29:22 Pat Name: SHADIA MILES Department: Room: Gender: M China Decorator: : 1945 Requested By: Raimundo Jones Order Number: [id number] Bentley MD: Franco Ch Measurements Intervals [place] Rate: 100 P: 52 WI: 152 QRS: 26 QRSD: 76 T: 108 QT: 347 QTc: 448 Interpretive Statements Sinus tachycardia Ventricular premature complex Probable left atrial enlargement Abnormal T, consider ischemia, lateral leads Compared to ECG 06/19/2018 14:46:41 Ventricular premature complex(es) now present T-wave abnormality now present Possible ischemia now present Electronically Signed On 05-09-2019 12:30:03 CDT by Franco Ch [email or web address] <ELECTRONICALLY SIGNED> By: Franco Ch MD, [facility] 05/09/19 1230 1329 1329 Franco Ch MD, [facility] /EPI
== END 2019-05-08 13:55 | disposition home or self-care (01) ==
LOC: M.ERS 13:23
DX: R53.1 Weakness (principal); I10 Essential (primary) hypertension; E11.9 Type 2 diabetes mellitus without complications; E78.5 Hyperlipidemia, unspecified; Z90.79 Acquired absence of other genital organ(s)

== ENCOUNTER 2019-06-13 14:54 | Emergency (ER) | payer OTHER ==
[~2019-06-13] VITALS: Ht 172.7 cm; Wt 96.6 kg
[2019-06-13 15:47] LABS: ABSOLUTE BASOPHILS 0.1 thou/uL (0.0-0.2); ABSOLUTE EOSINOPHILS 0.1 thou/uL (0.0-0.7); ABSOLUTE LYMPHOCYTES 1.7 thou/uL (0.8-5.3); ABSOLUTE NEUTROPHILS 10.5 thou/uL (1.6-8.1); BASOPHILS 0.7 %; EOSINOPHILS 1.1 %; HEMOGLOBIN 13.3 gm/dL (14.0-18.0); LYMPHOCYTES 12.8 %; MCH 28.3 pg (26.0-34.0); MCHC 33.1 g/dL (28.0-37.0); MCV 85.5 fL (80.0-100.0); MONOCYTES 7.7 %; MPV 7.3 fl. (7.2-11.1); NUCLEATED RBCS 0 /100WBC; PLATELET COUNT* 352 thou/uL (150-400); POLYS 77.7 %; RBC 4.68 mil/uL (4.50-6.00); RDW-CV 13.7 % (10.5-14.5); WBC 13.5 thou/uL (4.0-11.0)
[2019-06-13 15:56] LABS: ANION GAP 11 mmol/L (7-16); BUN 23 mg/dL (7-18); CHLORIDE 99 mmol/L (98-107); CO2 26 mmol/L (21-32); CREATININE 1.6 mg/dL (0.6-1.3); GLUCOSE 198 mg/dL (70-99); POTASSIUM 4.5 mmol/L (3.5-5.1); SODIUM 136 mmol/L (136-145)
[2019-06-13 15:59] LABS: APTT 25.4 Seconds (25.0-31.3); INR 1.1; PROTIME 10.8 Seconds (9.20-11.50)
[2019-06-13 16:08] LABS: ALBUMIN 3.3 g/dL (3.4-5.0); ALKALINE PHOSPHATASE 82 U/L (46-116); NT-PRO BRAIN NAT PEPTIDE 153 pg/mL (<300); SGOT 11 U/L (15-37); SGPT 26 U/L (30-65); TOTAL BILIRUBIN 0.3 mg/dL (<0.1-1.0); TOTAL PROTEIN 7.5 g/dL (6.4-8.2); TROPONIN-I LEVEL <0.06 ng/mL (<0.06)
[2019-06-13] MEDS ORDERED: VENTOLIN HFA 1818 GM INH (17:09)
[2019-06-13] MEDS ORDERED: MEDROLDOSEPACK PO (17:09)
[2019-06-13] MEDS ORDERED: LEVAQUIN 500 M500 M2 PO (17:09)
[2019-06-13 17:14] VITALS: BP 156/78
--- NOTE | 2019-06-14 11:08 | EKG ---
[place] [address] ELECTROCARDIOGRAM REPORT Name: SHADIA IMLES Room: [facility]#: [id number] Admission: 06/13/19 Attend Phys: Discharge: 06/13/19 Date of : 45 Report #: [id number] THIS REPORT FOR: //name// [facility] ED Test Date: 2019-06-13 Test Time: 15:50:27 Pat Name: SHADIA MILES Department: Room: Gender: M Nutritionist: : 1945 Requested By: Cathy Salgado Order Number: [id number] MD: Gus Patricia Measurements Intervals [place] Rate: 97 P: 44 [place]: 151 QRS: 18 QRSD: 76 T: 116 QT: 332 QTc: 422 Interpretive Statements Sinus rhythm Probable left atrial enlargement Abnormal T, consider ischemia, lateral leads Compared to ECG 05/08/2019 13:29:22 Sinus tachycardia no longer present Ventricular premature complex(es) no longer present T-wave abnormality still present Possible ischemia still present Electronically Signed On 06-14-2019 11:07:46 CDT by Gus Patricia [email or web address] <ELECTRONICALLY SIGNED> By: Gus Patricia MD, [facility] 06/14/19 1107 1550 1550 Gus Patricia MD, [facility] /EPI
== END 2019-06-13 17:16 | disposition left against medical advice (07) ==
LOC: M.ERS 14:54
PROVIDERS: Nurse Practitioner Family
DX: J44.1 Chronic obstructive pulmonary disease with (acute) exacerbation (principal); A41.9 Sepsis, unspecified organism; E86.0 Dehydration; E11.9 Type 2 diabetes mellitus without complications; I10 Essential (primary) hypertension; E78.5 Hyperlipidemia, unspecified; Z86.73 Personal history of transient ischemic attack (TIA), and cerebral infarction without residual deficits; Z90.79 Acquired absence of other genital organ(s); W18.2XXA Fall in (into) shower or empty bathtub, initial encounter; Y92.89 Other specified places as the place of occurrence of the external cause; Y93.89 Activity, other specified; Y99.8 Other external cause status

== ENCOUNTER 2020-08-08 11:47 | Inpatient (IN) | payer OTHER ==
[~2020-08-08] VITALS: Ht 172.7 cm; Wt 91.6 kg
[~2020-08-08 11:47] MED LIST changes: +MEDROLDOSEPACK PO; +VENTOLIN HFA 1818 GM INH
[2020-08-08 11:55] VITALS: BP 147/83
[2020-08-08 12:09] LABS: ABSOLUTE BASOPHILS 0.1 thou/uL (0.0-0.2); ABSOLUTE EOSINOPHILS 0.2 thou/uL (0.0-0.7); ABSOLUTE LYMPHOCYTES 1.8 thou/uL (0.8-5.3); ABSOLUTE MONOCYTES 0.9 thou/uL (0.0-1.2); ABSOLUTE NEUTROPHILS 8.4 thou/uL (1.6-8.1); BASOPHILS 0.9 %; EOSINOPHILS 1.4 %; HEMATOCRIT 40.6 % (42.0-52.0); HEMOGLOBIN 13.6 gm/dL (14.0-18.0); LYMPHOCYTES 16.2 %; MCH 28.4 pg (26.0-34.0); MCHC 33.6 g/dL (28.0-37.0); MCV 84.7 fL (80.0-100.0); MONOCYTES 7.6 %; MPV 7.2 fl. (7.2-11.1); NUCLEATED RBCS 0 /100WBC; PLATELET COUNT* 268 thou/uL (150-400); POLYS 73.9 %; RDW-CV 13.8 % (10.5-14.5); WBC 11.4 thou/uL (4.0-11.0)
[2020-08-08 12:19] LABS: CALCIUM 8.8 mg/dL (8.5-10.1); CREATININE 2.6 mg/dL (0.6-1.3); POTASSIUM 4.4 mmol/L (3.5-5.1)
[2020-08-08 12:32] LABS: APTT 25.1 Seconds (25.0-31.3); INR 1.1; PROTIME 10.9 Seconds (9.20-11.50)
[2020-08-08 12:33] LABS: ALBUMIN 3.4 g/dL (3.4-5.0); TOTAL BILIRUBIN 0.5 mg/dL (<0.1-1.0); TOTAL PROTEIN 7.5 g/dL (6.4-8.2)
[2020-08-08 13:47] LABS: URINE BILIRUBIN NEGATIVE (Negative); URINE BLOOD NEGATIVE (Negative); URINE CLARITY CLEAR; URINE COLOR YELLOW; URINE GLUCOSE-RANDOM 1+ (Negative); URINE KETONES NEGATIVE (Negative); URINE LEUKOCYTES-REFLEX NEGATIVE (Negative); URINE NITRITE-REFLEX NEGATIVE (Negative); URINE PROTEIN 2+ (Negative); URINE SPECIFIC GRAVITY >= 1.030 (1.005-1.030); URINE UROBILINOGEN 0.2 E.U./dl (0.2-1.0)
[2020-08-08 14:01] LABS: BACTERIA-REFLEX None Seen /HPF (None Seen); MUCUS None Seen strn/LPF (None Seen); RENAL EPITHELIAL CELLS 0-3 Few /LPF (None Seen); SQUAMOUS 0-3 Few /LPF (0-3); URINE RBC None Seen /HPF (0-2); URINE WBC-REFLEX None Seen /HPF (0-5)
[2020-08-08 14:02] LABS: AMORPHOUS URATES Moderate /LPF (None Seen); HYALINE CASTS 0-3 Few /LPF (None Seen)
[2020-08-08 17:45] VITALS: BP 149/76
--- NOTE | 2020-08-08 17:49 | EKG ---
[place] [address] ELECTROCARDIOGRAM REPORT Name: MILES,SHADIA Crokcett Room: [place] [address] ADM IN .R.#: [id number] Admission: 08/08/20 Attend Phys: Collin Hayes Discharge: Date of : 45 Date of Service: 08/08/20 1155 Report #: [id number] THIS REPORT FOR: //name// [facility] ED Test Date: 2020-08-08 Test Time: 11:55:00 Pat Name: SHADIA MILES Department: Room: [facility] Gender: M Acute Care Nursing Assistant: : 1945 Requested By: Vinnie Nguyen Order Number: [id number] MD: Delfin Way Measurements Intervals [place] Rate: 91 P: 49 TN: 149 QRS: 10 QRSD: 76 T: 114 QT: 361 QTc: 445 Interpretive Statements Sinus rhythm Nonspecific T abnormalities, lateral leads Baseline wander in lead(s) V2,V4 Compared to ECG 06/13/2019 15:50:27 Possible ischemia no longer present T-wave abnormality still present Electronically Signed On 08-08-2020 17:49:[address] [email or web address] <ELECTRONICALLY SIGNED> By: Delfin Way MD, FACC 08/08/[address] MD, FACC /EPI
[2020-08-08 20:00] VITALS: BP 130/70
[2020-08-08 22:02] VITALS: BP 145/78
--- NOTE | 2020-08-09 04:46 | NUR ---
PT ARRIVED FROM ER AT 2129. A&O X 2-3. MEDS GIVEN ORDERED. DENIED PAIN. IVF INFUISING. PT USES URINAL. SITTER IN ROOM. WILL CONTINUE TO MONITOR.
[2020-08-09 05:11] LABS: HEMATOCRIT 35.7 % (42.0-52.0); HEMOGLOBIN 12.2 gm/dL (14.0-18.0); MCH 28.5 pg (26.0-34.0); MCHC 34.1 g/dL (28.0-37.0); MCV 83.5 fL (80.0-100.0); MPV 7.7 fl. (7.2-11.1); RBC 4.28 mil/uL (4.50-6.00); RDW-CV 13.9 % (10.5-14.5); WBC 7.9 thou/uL (4.0-11.0)
[2020-08-09 05:30] LABS: ALBUMIN 2.9 g/dL (3.4-5.0); CALCIUM 8.2 mg/dL (8.5-10.1); CREATININE 1.9 mg/dL (0.6-1.3); MAGNESIUM 1.3 mg/dL (1.8-2.4); PHOSPHORUS* 2.8 mg/dL (2.5-4.9); POTASSIUM 3.3 mmol/L (3.5-5.1)
[2020-08-09 07:30] VITALS: BP 186/94
[2020-08-09 12:52] LABS: CALCIUM 8.1 mg/dL (8.5-10.1); CREATININE 1.8 mg/dL (0.6-1.3); POTASSIUM 3.6 mmol/L (3.5-5.1)
[2020-08-09 12:56] LABS: MAGNESIUM 1.2 mg/dL (1.8-2.4); PHOSPHORUS* 2.5 mg/dL (2.5-4.9)
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
[2020-08-09 14:14] VITALS: BP 145/74
[2020-08-09 16:00] VITALS: BP 151/56
--- NOTE | 2020-08-09 16:22 | NUR ---
PATIENT UP TO CHAIR THIS AM INTO AFTERNOON WITH THERAPY. GOOD APPETITE. NO COMPLAINTS OF PAIN. PATIENT DC'D OWN IV STATING HIS TOLD HIM HE WAS DISCHARGING TODAY. PATIENT INFORMED HE WAS NOT LEAVING TODAY AND IV REPLACED PER INFUSION NURSE TO RIGHT FA. IVF REMAINS INFUSING, MG 1.2 AND BEING REPLACED PER ELEC PROTOCOL. POTASSIUM WAS 3.3 AND ONE TIME DOSE GIVEN PER ELEC PROTOCOL. VOIDING PER URINAL, ORDERS FOR SAMPLE FROM NEPHROLOGY THIS AFTERNOON. GENNARO RENAL US DONE THIS AFTERNOON, NORMAL RESULTS. INSULIN GIVEN WITH MEALS WHEN REQUIRED. BED ALARM REMAINS ON FOR PATIENT SAFETY.
[2020-08-09 20:00] VITALS: BP 164/83
[2020-08-10 03:44] LABS: HEMATOCRIT 33.4 % (42.0-52.0); HEMOGLOBIN 11.5 gm/dL (14.0-18.0); MCH 28.7 pg (26.0-34.0); MCHC 34.5 g/dL (28.0-37.0); MCV 83.3 fL (80.0-100.0); MPV 7.4 fl. (7.2-11.1); RBC 4.01 mil/uL (4.50-6.00); RDW-CV 13.5 % (10.5-14.5)
[2020-08-10 04:00] LABS: ALBUMIN 2.8 g/dL (3.4-5.0); CALCIUM 7.2 mg/dL (8.5-10.1); CREATININE 1.5 mg/dL (0.6-1.3); MAGNESIUM 1.4 mg/dL (1.8-2.4); PHOSPHORUS* 2.1 mg/dL (2.5-4.9); POTASSIUM 3.4 mmol/L (3.5-5.1); TOTAL BILIRUBIN 0.3 mg/dL (<0.1-1.0); TOTAL PROTEIN 6.7 g/dL (6.4-8.2)
--- NOTE | 2020-08-10 04:17 | NUR ---
PT A&O X 3-4, FORGETFUL. DENIED PAIN. NEW IV INSERTED AND EDUCATION GIVEN. BED ALARM ON FOR SAFETY. HOURLY ROUNDINGS COMPLETED. IVF INFUISING. WILL CONTINUE TO MONITOR.
[2020-08-10 07:30] VITALS: BP 147/94
--- NOTE | 2020-08-10 12:37 | NUR ---
Cr is trending down, renal to sign off. PT to eval today. Pt will likely need SNF at ar, awaiting evals. CM spoke with Nancy at [facility], they will not have a bed available until Thursday. [facility] is able to accept Pt for skilled, CM to fax PT eval when available and [facility] will initiate insurance auth. CM to update Pt's son. Following.
[2020-08-10 16:13] VITALS: BP 149/91
--- NOTE | 2020-08-10 16:23 | NUR ---
PATIENT MORE CONFUSED UPON EVENING. PATIENT PULLED OUT IV THIS SHIFT, DR. VILLALPANDO NOTIFIED AND OK TO LEAVE IV OUT. MG REPLACED IV. SPOKE WITH DR. TANG THIS AM AND WILL SIGN OFF AND OK TO DC IVF'S. UP WITH SBA TO TO BATHROOM. AWAITING PLACEMENT FOR PATIENT.
[2020-08-10 20:30] VITALS: BP 148/65
[2020-08-11 04:55] LABS: HEMATOCRIT 39.2 % (42.0-52.0); HEMOGLOBIN 13.3 gm/dL (14.0-18.0); MCH 28.5 pg (26.0-34.0); MCHC 33.9 g/dL (28.0-37.0); MPV 7.7 fl. (7.2-11.1); RBC 4.66 mil/uL (4.50-6.00); RDW-CV 13.8 % (10.5-14.5); WBC 7.2 thou/uL (4.0-11.0)
--- NOTE | 2020-08-11 05:11 | NUR ---
PT A&O, MEDS GIVEN ORDERED. PT NAKED, REFUSED TO WEAR A GOWN. USES URINAL TO VOID. BED ALARM ON. WILL CONTINUE TO MONITOR.
[2020-08-11 05:27] LABS: ALBUMIN 3.3 g/dL (3.4-5.0); CALCIUM 8.4 mg/dL (8.5-10.1); CREATININE 1.4 mg/dL (0.6-1.3); MAGNESIUM 1.7 mg/dL (1.8-2.4); POTASSIUM 3.8 mmol/L (3.5-5.1); TOTAL BILIRUBIN 0.4 mg/dL (<0.1-1.0); TOTAL PROTEIN 7.8 g/dL (6.4-8.2)
[2020-08-11 07:20] VITALS: BP 131/61
[2020-08-11 16:00] VITALS: BP 150/72
--- NOTE | 2020-08-11 16:11 | NUR ---
PER CHART REVIEW AND OBSERVATION DURING COGNITIVE EVALUATION, PT DOES NOT EXHIBIT SWALLOW DEFICITS AT THIS TIME WHEN SEATED ADEQUATELY. NO EVALUATION OR TX WARRANTED AT THIS TIME.
[2020-08-11 19:36] VITALS: BP 158/66
[2020-08-12 05:19] LABS: ALBUMIN 3.1 g/dL (3.4-5.0); CALCIUM 8.2 mg/dL (8.5-10.1); CREATININE 1.5 mg/dL (0.6-1.3); PHOSPHORUS* 2.8 mg/dL (2.5-4.9); POTASSIUM 3.6 mmol/L (3.5-5.1)
--- NOTE | 2020-08-12 05:43 | NUR ---
PT A&OX4, FORGETFUL, VSS ON ROOM AIR, PT UP WITH SB ASSIST, PT TURNED Q2H, PT SLEEPING WELL. HOURLY ROUNDINGS COMPLETE, WILL CONTINUE TO MONITOR.
[2020-08-12 07:30] VITALS: BP 142/63
[2020-08-12] MEDS ORDERED: MAGNESIUM400 MG PO (10:57)
[2020-08-12] MEDS ORDERED: LANTUS SUBQ (10:58)
[2020-08-12] MEDS ORDERED: HUMALOG100 UNIT/1 SUBQ (10:59)
[2020-08-12 16:00] VITALS: BP 139/58
--- NOTE | 2020-08-12 17:21 | NUR ---
PT REMAINED ALERT AND ORIENTED. PT RESTING IN BED. ACCUCHECKS COMPLETED. PT DENIED ANY NEEDS AT THIS TIME. FALL RISK PRECAUTIONS IN PLACE. HOURLY ROUNDING COMPLETED. WILL CONTINUE TO MONITOR.
[2020-08-12 19:32] VITALS: BP 148/73
--- NOTE | 2020-08-12 23:35 | NUR ---
PT BLOOD GLUCOSE 142 AT 1937, GLARGINE ORDER FOR 55 UNTIS. AT [address] VILLALPANDO, GAVE REPORT ON PATIENT'S BLOOD GLUCOSE LEVEL AND GLARGINE DOSE GIVEN ON 08/11 WHICH RESULTED IN A 10 AM BLOOD GLUCOSE OF 55. ORDER GIVEN TO ADMINISTER 25 UNITS OF GLARGINE.
--- NOTE | 2020-08-13 05:17 | NUR ---
PT A&O THROUGHOUT SHIFT, VSS ON ROOM AIR, PT TURNED Q2H, PT SLEEPING WELL, HOURLY ROUNDINGS COMPLETE, WILL CONTINUE TO MONITOR.
[2020-08-13 07:30] VITALS: BP 147/74
--- NOTE | 2020-08-13 09:09 | NUR ---
FAXED PT EVAL AND PT BRIEF FOLLOW UP FROM THE WEEKEND TO RIKKI/[facility] [phone].
--- NOTE | 2020-08-13 10:00 | NUR ---
[facility] CALLED AND SAID INSURANCE NEEDS UPDATES THAT HAVE BEEN DONE IN PAST 24 HRS. NOTIFIED PT/OT TO SEE PTS THIS AM IF POOSIBLE AND PUT NOTES IN.
--- NOTE | 2020-08-13 11:45 | NUR ---
P.T.NOTE UPDATE FAXED TO [facility] FROM TODAY.
[2020-08-13 15:40] VITALS: BP 141/67
--- NOTE | 2020-08-13 17:54 | NUR ---
A&O X 2, PERSON AND TIME. UP WITH STAND BY ASSIST TO CHAIR. SAT IN CHAIR UNTIL AFTER LUNCH THEN ASSISTED BACK TO BED AFTER CHAIR ALARM WENT OFF. PT DOES NOT REMEMBER TO CALL FOR NURSE. NO SKIN ISSUES NOTED. MAG. REPLACED TODAY WAS 1.6. LUNGS CLEAR, HEART TONES REGULAR. +BS X 4 QUADS. PEDAL PULSES PRESENT NO EDEMA NOTED. NO C/O AT THIS TIME. WILL CONTINUE TO MONITOR. BLOOD SUGAR LOW 1130 81 REGULAR INSULIN HELD. BLOOD SUGAR AT 1630 92 REGULAR INSULIN HELD. WILL CONTINUE TO MONITOR.
[2020-08-13 19:28] VITALS: BP 101/56; BP 130/65; BP 91/53
[2020-08-13 20:14] VITALS: BP 113/47
--- NOTE | 2020-08-14 05:24 | NUR ---
ALERT TO SELF, IMPULSIVE, WILL NOT USE CALL LIGHT. HE IS CONFUSED OF WHERE HE IS AND WAKES UP EVERY SEVERAL HOURS WANTING TO EAT. WE HAVE PROVIDED HIM WITH SNACKS AND KEPT HIS BED ALARM ON. HE IS INCONTINENT AND DOES NOT USE URINAL/COMMODE. SCD'S ON ALL SHIFT. UNKNOWN LAST BM. ENCOURAGED HYDRATION/PRUNE JUICE. SKIN CLEAN/DRY AND INTACT. D/C ONCE SNF PLACEMENT IS ARRANGED.
[2020-08-14 08:00] VITALS: BP 131/56
--- NOTE | 2020-08-14 09:00 | NUR ---
CALL FROM [facility]. SHE RECEIVED INSURANCE AUTH FOR SKILLED BED. SHE WILL ARRANGE [facility] FOR 1300. CHART TO BE COPIED TO GO WITH PT. GAVE JETT CUNNINGHAM NUMBER TO CALL REPORT. GRICELDA CALLED SON,VALEREI TO INFORM HIM AND TO TELL HIM HE NEEDS TO HELP HIS MOM FIND A PLACE FOR DAD TO GO LTC OR ASSISTED LIVING HE WILL PROBABLY ONLY STAY FOR THERAPIES FOR ABOUT 2 WEEKS. HE SAID HIS MOM WANTS TO GO WHERE HE GOES. HE SAID HE WOULD HELP HER FIND SOMEWHERE TO GO.
--- NOTE | 2020-08-14 12:28 | NUR ---
REPORT CALLED TO ROLANDO AT [facility] [phone]. PT TO LEAVE APPROX 1300 BY WHEELCHAIR VAN
--- NOTE | 2020-08-14 13:22 | NUR ---
PT LYING IN BED AT TIME OF ASSESSMENT, LUNGS COURSE UNTIL COUGHING AND THEN CTA, PT STATES HE ONLY COUGHS IN AM TO CLEAR OUT HIS LUNGS. PT ATE BREAKFAST AND THEN WENT BACK TO SLEEP, RISING TO EAT LUNCH AND GET READY FOR TRANSFER. PT DISCHARGED TO [facility] BY WHEELCHAIR VAN IN STABLE CONDITION. NO IV ACCESS TO REMOVE. REPORT CALLED TO ROLANDO.
--- NOTE | 2020-08-15 17:30 | CON ---
[address] [address] CONSULTATION Name: SHADIA MILES Room: [address] IN [facility].#: [id number] Admission: 08/08/20 Attend Phys: Collin Chan, Discharge: 08/14/20 Date of : 45 Report #: [id number] THIS REPORT FOR: //name// cc: Obdulio Rae MD, Anthony MD ~ THIS REPORT FOR: //name// CONSULTING PHYSICIAN: Collin Chan MD REASON FOR CONSULTATION: Acute kidney injury. HISTORY OF PRESENT ILLNESS: A 74-year-old gentleman who was admitted with generalized weakness and acute kidney injury. He had a creatinine of 2.6 on admission. He was on lisinopril in 05/2019 he had a creatinine 1.6, in 05/2018 he had a creatinine of 1.1. He denies any nausea, vomiting or diarrhea. He is somewhat poor historian and history is largely obtained through chart review. REVIEW OF SYSTEMS: Constitutional, psych, heme, eyes, ENT, respiratory, cardiac, GI, , endocrine, all negative except as documented above. PAST MEDICAL HISTORY: COPD, insulin-dependent diabetes, history of CVA, hypertension, BPH with TURP. SOCIAL HISTORY: Former smoker. FAMILY HISTORY: Not pertinent in this 74-year-old gentleman. CURRENT MEDICATIONS: Reviewed. PHYSICAL EXAMINATION: VITAL SIGNS: Blood pressure is 145/78, this morning was 186/94, pulse is 95, respirations 18, and temperature 37.1. Most of his blood pressures have been in the 130-140 range. GENERAL: No acute distress. EYES: Open. EARS: Externally normal. NECK: Supple. CARDIOVASCULAR: Regular rate. LUNGS: Diminished breath sounds. ABDOMEN: Soft. MUSCULOSKELETAL: Nontender. PSYCHIATRIC: Awake, alert. LABORATORY DATA: White cell count 7.9, hemoglobin 12.2, platelets 237. Sodium 134, potassium 3.3, chloride 100, bicarbonate 26, BUN 30, creatinine 1.9, glucose 152, calcium 8.2, phosphorus 2.8, magnesium 1.3, and albumin 2.9. [place] [address] CONSULTATION Name: SHADIA MILES Room: [address]#: [id number] Admission: 08/08/20 Attend Phys: Collin Chan, Discharge: 08/14/20 Date of : 45 Report #: [id number] ASSESSMENT: 1. Acute kidney injury with admission creatinine of 2.6. UA noted. He was on lisinopril and has a component of volume depletion. In 05/2019, creatinine was 1.6, in May 2018 creatinine 1.1. 2. Insulin-dependent diabetes type 2. 3. Chronic obstructive pulmonary disease. 4. History of cerebrovascular accident. 5. Hypertension. 6. Benign prostatic hypertrophy with transurethral resection of prostate. 7. Proteinuria noted on urinalysis. 8. Hypoalbuminemia with an albumin of 2.9. PLAN: 1. Continue IV fluids. Creatinine is down to 1.9. 2. Mild hyponatremia. We will monitor. 3. Hypokalemia, being replaced. 4. Hypomagnesemia, being replaced. 5. Check urine protein to creatinine ratio. 6. Check renal ultrasound. 7. Check labs again in the a.m. including magnesium. Thank you for requesting my opinion in the care and management of this patient. <ELECTRONICALLY SIGNED> By: Asad Montemayor MD 08/15/20 1730 1357 [id number] Montemayor MD /nt
== END 2020-08-14 13:45 | DRG 637 ==
LOC: M.ERS 11:47 → M.TBA-ER 13:50 → M.ORTHSURG 13:50
PROVIDERS: Family Medicine; ADMIT Family Medicine; ATTEND Family Medicine
DX: E11.9 Type 2 diabetes mellitus without complications (principal); N17.0 Acute kidney failure with tubular necrosis; G93.41 Metabolic encephalopathy; E87.1 Hypo-osmolality and hyponatremia; Z20.828 Contact with and (suspected) exposure to other viral communicable diseases; I10 Essential (primary) hypertension; E78.5 Hyperlipidemia, unspecified; J44.9 Chronic obstructive pulmonary disease, unspecified; E83.42 Hypomagnesemia; N40.0 Benign prostatic hyperplasia without lower urinary tract symptoms; E88.09 Other disorders of plasma-protein metabolism, not elsewhere classified; E87.6 Hypokalemia; E86.0 Dehydration; Z86.73 Personal history of transient ischemic attack (TIA), and cerebral infarction without residual deficits; Z79.4 Long term (current) use of insulin; Z87.891 Personal history of nicotine dependence; Z82.49 Family history of ischemic heart disease and other diseases of the circulatory system; Z79.899 Other long term (current) drug therapy

== ENCOUNTER 2021-08-29 11:25 | Inpatient (IN) | payer OTHER ==
[~2021-08-29] VITALS: Ht 172.7 cm; Wt 80.3 kg
[~2021-08-29 11:25] MED LIST changes: +MAGNESIUM400 MG PO
[2021-08-29 11:29] VITALS: BP 136/67
[2021-08-29 11:55] LABS: ABSOLUTE BASOPHILS 0.1 thou/uL (0.0-0.2); ABSOLUTE LYMPHOCYTES 1.2 thou/uL (0.8-5.3); ABSOLUTE MONOCYTES 1.7 thou/uL (0.0-1.2); ABSOLUTE NEUTROPHILS 14.5 thou/uL (1.6-8.1); BASOPHILS 0.3 %; HEMATOCRIT 31.1 % (42.0-52.0); HEMOGLOBIN 10.1 gm/dL (14.0-18.0); LYMPHOCYTES 6.9 %; MCH 25.4 pg (26.0-34.0); MCHC 32.5 g/dL (28.0-37.0); MONOCYTES 9.9 %; MPV 7.1 fl. (7.2-11.1); NUCLEATED RBCS 0 /100WBC; PLATELET COUNT* 440 thou/uL (150-400); POLYS 82.9 %; RBC 3.98 mil/uL (4.50-6.00); RDW-CV 15.8 % (10.5-14.5); WBC 17.5 thou/uL (4.0-11.0)
[2021-08-29 12:03] LABS: CALCIUM 8.4 mg/dL (8.5-10.1); POTASSIUM 3.6 mmol/L (3.5-5.1)
[2021-08-29 12:07] LABS: ALBUMIN 1.9 g/dL (3.4-5.0); TOTAL PROTEIN 8.4 g/dL (6.4-8.2)
--- NOTE | 2021-08-29 14:03 | EKG ---
[place] [address] ELECTROCARDIOGRAM REPORT Name: SHADIA MILES Room: [facility]#: [id number] Admission: 08/29/21 Attend Phys: Discharge: Date of : 45 Date of Service: 08/29/21 1134 Report #: [id number] THIS REPORT FOR: //name// [facility] ED Test Date: 2021-08-29 Test Time: 11:34:42 Pat Name: SHADIA MILES Department: Room: Gender: Technology Solutions Architect: : 1945 Requested By: Abel Campos Order Number: [id number] MD: Delfin Way Measurements Intervals [place] Rate: 120 P: 61 [place]: 132 QRS: 46 QRSD: 83 T: 94 QT: 326 QTc: 461 Interpretive Statements Sinus tachycardia Atrial premature complex Compared to ECG 08/08/2020 11:55:00 Atrial premature complex(es) now present Sinus rhythm no longer present T-wave abnormality no longer present Electronically Signed On 08-29-2021 14:03:[address] [email or web address] <ELECTRONICALLY SIGNED> By: Delfin Way MD, FACC 08/29/[address] MD, FAC /EPI
[2021-08-29 18:19] LABS: URINE BILIRUBIN NEGATIVE (Negative); URINE BLOOD 2+ (Negative); URINE CLARITY CLEAR; URINE COLOR YELLOW; URINE GLUCOSE-RANDOM 1+ (Negative); URINE KETONES NEGATIVE (Negative); URINE LEUKOCYTES NEGATIVE (Negative); URINE NITRITE NEGATIVE (Negative); URINE PROTEIN 2+ (Negative)
[2021-08-29 18:26] LABS: HYALINE CASTS 4-10 Moderate /LPF (None Seen); SQUAMOUS 0-3 Few /LPF (0-3)
[2021-08-29 18:27] LABS: BACTERIA None Seen /HPF (None Seen); CRYSTALS None Seen /LPF (None Seen); MUCUS None Seen strn/LPF (None Seen); URINE RBC 3-10 Few /HPF (0-2); URINE WBC 0-5 Rare /HPF (0-5)
[2021-08-29 20:50] VITALS: BP 163/72
[2021-08-29 22:00] VITALS: BP 161/65
[2021-08-30 09:00] VITALS: BP 159/75
[2021-08-30 15:18] VITALS: BP 115/79
[2021-08-30 20:05] VITALS: BP 134/74
[2021-08-31 00:54] VITALS: BP 163/84
[2021-08-31 05:11] VITALS: BP 171/82
[2021-08-31 06:07] LABS: HEPATITIS B SURFACE AG Negative (Negative)
[2021-08-31 08:00] VITALS: BP 171/88
[2021-08-31 12:16] LABS: URINE BILIRUBIN NEGATIVE (Negative); URINE BLOOD 3+ (Negative); URINE CLARITY CLEAR; URINE COLOR YELLOW; URINE GLUCOSE-RANDOM NEGATIVE (Negative); URINE KETONES TRACE (Negative); URINE LEUKOCYTES NEGATIVE (Negative); URINE NITRITE NEGATIVE (Negative); URINE PROTEIN 1+ (Negative); URINE SPECIFIC GRAVITY 1.015 (1.005-1.030)
[2021-08-31 12:34] LABS: BACTERIA None Seen /HPF (None Seen); SQUAMOUS NONE SEEN /LPF (0-3); URINE RBC >20 Many /HPF (0-2); URINE WBC 0-5 Rare /HPF (0-5)
[2021-08-31 12:35] LABS: CASTS None Seen /LPF (None Seen); CRYSTALS None Seen /LPF (None Seen)
[2021-08-31 13:52] LABS: ALBUMIN 1.3 g/dL (3.4-5.0); CALCIUM 7.3 mg/dL (8.5-10.1); CREATININE 1.2 mg/dL (0.6-1.3); DIRECT BILIRUBIN 0.7 mg/dL (<0.1-0.3); MAGNESIUM 1.5 mg/dL (1.8-2.4); TOTAL PROTEIN 7.2 g/dL (6.4-8.2); TOTAL PROTEIN 7.3 g/dL (6.4-8.2)
[2021-08-31 13:57] LABS: POTASSIUM 2.7 mmol/L (3.5-5.1)
[2021-08-31 17:30] VITALS: BP 142/76
[2021-08-31 20:00] VITALS: BP 157/69
[2021-09-01 00:31] VITALS: BP 102/81
[2021-09-01 04:43] LABS: HEMATOCRIT 28.9 % (42.0-52.0); HEMOGLOBIN 9.3 gm/dL (14.0-18.0); MCH 24.8 pg (26.0-34.0); MCHC 32.2 g/dL (28.0-37.0); MCV 76.8 fL (80.0-100.0); MPV 7.6 fl. (7.2-11.1); RBC 3.76 mil/uL (4.50-6.00); RDW-CV 15.5 % (10.5-14.5); WBC 14.4 thou/uL (4.0-11.0)
[2021-09-01 04:49] LABS: ALBUMIN 1.2 g/dL (3.4-5.0); CALCIUM 7.2 mg/dL (8.5-10.1); CREATININE 1.3 mg/dL (0.6-1.3); POTASSIUM 3.3 mmol/L (3.5-5.1); TOTAL BILIRUBIN 0.8 mg/dL (<0.1-1.0)
[2021-09-01 08:00] VITALS: BP 161/79
[2021-09-01 20:00] VITALS: BP 150/72
[2021-09-02] VITALS: BP 153/68
[2021-09-02 04:00] VITALS: BP 154/73
[2021-09-02 08:00] VITALS: BP 154/79
[2021-09-02 09:21] VITALS: BP 154/79
[2021-09-02 18:06] LABS: GLOBULIN TOTAL 4.2 g/dL (2.2-3.9); M-SPIKE Not Observed g/dL (Not Observed)
[2021-09-02 20:00] VITALS: BP 150/81
[2021-09-03] VITALS (37 sets, daily range): BP systolic 121–175; BP diastolic 56–85
[2021-09-03 04:41] LABS: ABSOLUTE BASOPHILS 0.1 thou/uL (0.0-0.2); ABSOLUTE EOSINOPHILS 0.1 thou/uL (0.0-0.7); ABSOLUTE LYMPHOCYTES 1.8 thou/uL (0.8-5.3); ABSOLUTE MONOCYTES 1.2 thou/uL (0.0-1.2); ABSOLUTE NEUTROPHILS 9.3 thou/uL (1.6-8.1); BASOPHILS 0.5 %; EOSINOPHILS 1.1 %; HEMATOCRIT 28.8 % (42.0-52.0); HEMOGLOBIN 9.3 gm/dL (14.0-18.0); LYMPHOCYTES 14.6 %; MCH 24.9 pg (26.0-34.0); MCHC 32.4 g/dL (28.0-37.0); MCV 76.9 fL (80.0-100.0); MONOCYTES 9.3 %; MPV 7.5 fl. (7.2-11.1); NUCLEATED RBCS 0 /100WBC; PLATELET COUNT* 398 thou/uL (150-400); POLYS 74.5 %; RBC 3.75 mil/uL (4.50-6.00); RDW-CV 15.5 % (10.5-14.5); WBC 12.6 thou/uL (4.0-11.0)
[2021-09-03 05:00] LABS: CALCIUM 7.2 mg/dL (8.5-10.1); CREATININE 1.2 mg/dL (0.6-1.3); POTASSIUM 3.2 mmol/L (3.5-5.1)
[2021-09-03 05:03] LABS: INR 1.3; PROTIME 12.8 Seconds (9.20-11.50)
[2021-09-04 04:00] VITALS: BP 142/75
[2021-09-04 08:30] VITALS: BP 145/69
[2021-09-04 11:56] VITALS: BP 144/77
[2021-09-04 16:00] VITALS: BP 140/80
[2021-09-04 20:00] VITALS: BP 141/67
[2021-09-05 04:00] VITALS: BP 160/76
[2021-09-05 08:00] VITALS: BP 142/65
[2021-09-05 11:44] VITALS: BP 142/68
[2021-09-05 15:13] LABS: ABSOLUTE BASOPHILS 0.1 thou/uL (0.0-0.2); ABSOLUTE EOSINOPHILS 0.1 thou/uL (0.0-0.7); ABSOLUTE MONOCYTES 1.4 thou/uL (0.0-1.2); ABSOLUTE NEUTROPHILS 9.7 thou/uL (1.6-8.1); BASOPHILS 0.4 %; EOSINOPHILS 0.6 %; HEMATOCRIT 27.4 % (42.0-52.0); HEMOGLOBIN 8.9 gm/dL (14.0-18.0); LYMPHOCYTES 15.3 %; MCHC 32.4 g/dL (28.0-37.0); MCV 77.1 fL (80.0-100.0); MONOCYTES 10.6 %; MPV 7.3 fl. (7.2-11.1); NUCLEATED RBCS 0 /100WBC; POLYS 73.1 %; RBC 3.56 mil/uL (4.50-6.00); WBC 13.3 thou/uL (4.0-11.0)
[2021-09-05 15:14] LABS: PLATELET COUNT* 473 thou/uL (150-400)
[2021-09-05 15:25] LABS: ALBUMIN 1.2 g/dL (3.4-5.0); CALCIUM 7.5 mg/dL (8.5-10.1); CREATININE 1.6 mg/dL (0.6-1.3); POTASSIUM 3.7 mmol/L (3.5-5.1); TOTAL BILIRUBIN 0.5 mg/dL (<0.1-1.0); TOTAL PROTEIN 6.8 g/dL (6.4-8.2)
[2021-09-05 15:48] VITALS: BP 151/75
[2021-09-05 20:00] VITALS: BP 142/63
[2021-09-06] VITALS: BP 167/76
[2021-09-06 08:00] VITALS: BP 139/68
--- NOTE | 2021-09-06 11:08 | PATH ---
[address] [address] PATHOLOGY RPT PROCEDURE Name: SHADIA AVENDAÑO Bon Room: [address] IN .R.#: [id number] Admission: 08/29/21 Date of : 45 Discharge: Report #: [id number] Path Case #: [id number] [facility] Accession Number: [id number] . 01 Material submitted: . liver - LIVER MASS LEFT. Modifiers: left . 01 Clinical history: . 2.97 X 3.46 X 2.45 CM . 02 Diagnosis: Liver mass left: - METASTATIC ADENOCARCINOMA, MODERATELY DIFFERENTIATED, TYPICAL OF COLORECTAL PRIMARY. SEE COMMENT. (OSBALDO:pit; 09/05/2021) QTP 09/05/2021 1059 Local . 02 Comment: Essentially all of the tissue core is adenocarcinoma with prominent "dirty necrosis" and without liver parenchyma seen. Properly controlled immunohistochemical studies performed on A1 show the neoplastic cells to have the following characteristics, supporting the diagnosis: . CK7: Focal positive CK20: Patchy positive CDX2: Positive . Dr. Santoyo notified at approximately 10:45 on 09/05/2021. Reviewed with Dr. Alcon Boles on 09/06/2021 who agrees with the diagnosis. (OSBALDO:pit; 09/05/2021) . 02 Electronically signed: . Khari Saldana MD, Pathologist NPI- [id number] . 01 Gross description: . The specimen is received in formalin, labeled "Shadia Avendaño, liver mass". Received is a single needle core of pale yellow tissue measuring 1.5 cm in length by 0.1 cm in diameter. The specimen is submitted entirely in A1. ([facility]; 09/03/2021) NRI/NRI 09/03/2021 2142 Local . 02 Pathologist provided ICD-10: C78.7 . 02 CPT . 153066, [id number], [id number] [place] [address] PATHOLOGY RPT PROCEDURE Name: SHADIA AVENDAÑO Room: [address] [place] [facility]#: [id number] Admission: 08/29/21 Date of : 45 Discharge: Report #: [id number] Path Case #: [id number] Specimen Comment: A courtesy copy of this report has been sent to [phone] Specimen Comment: [phone], Specimen Comment: Report sent to , DR SCHWARTZ / DR NUNN Performed at: [address], [place], [place] [id number] MD Stephon Cardoza MD Phone: [phone] Performed at: [address] [address] [address] Valenzuela, [place], [place] [id number] MD Khari Saldana MD Phone: [phone]
[2021-09-06 12:26] VITALS: BP 152/76
[2021-09-06 16:06] VITALS: BP 147/70
[2021-09-06 20:00] VITALS: BP 118/60
[2021-09-07] VITALS: BP 159/72
[2021-09-07 08:00] VITALS: BP 171/51
[2021-09-07 12:30] VITALS: BP 123/53
[2021-09-07 14:03] VITALS: BP 123/53
== END 2021-09-07 14:15 | disposition hospice, home (50) | DRG 374 ==
LOC: M.ERS 11:25 → M.TBA-ER 15:38 → M.ORTHSURG 15:38
PROVIDERS: Emergency Medicine; Internal Medicine; Internal Medicine Hematology & Oncology; ADMIT Internal Medicine; ATTEND Internal Medicine
PROC: 0FB23ZX Excision of Left Lobe Liver, Percutaneous Approach, Diagnostic (ICD-10-PCS; principal; 2021-09-03)
DX: C18.9 Malignant neoplasm of colon, unspecified (principal); G93.41 Metabolic encephalopathy; R65.11 Systemic inflammatory response syndrome (SIRS) of non-infectious origin with acute organ dysfunction; N39.0 Urinary tract infection, site not specified; B17.9 Acute viral hepatitis, unspecified; C91.10 Chronic lymphocytic leukemia of B-cell type not having achieved remission; N17.9 Acute kidney failure, unspecified; C78.7 Secondary malignant neoplasm of liver and intrahepatic bile duct; Z20.822 Contact with and (suspected) exposure to COVID-19; N40.0 Benign prostatic hyperplasia without lower urinary tract symptoms; E11.40 Type 2 diabetes mellitus with diabetic neuropathy, unspecified; Z79.4 Long term (current) use of insulin; I25.10 Atherosclerotic heart disease of native coronary artery without angina pectoris; D50.9 Iron deficiency anemia, unspecified; Z86.73 Personal history of transient ischemic attack (TIA), and cerebral infarction without residual deficits; J44.9 Chronic obstructive pulmonary disease, unspecified; I12.9 Hypertensive chronic kidney disease with stage 1 through stage 4 chronic kidney disease, or unspecified chronic kidney disease; E11.22 Type 2 diabetes mellitus with diabetic chronic kidney disease; N18.9 Chronic kidney disease, unspecified; Z51.5 Encounter for palliative care